=== PATIENT | female | born 1940 | race Caucasian/White ===

== ENCOUNTER 2016-06-26 21:01 | Emergency (ER) | payer MEDICARE, OTHER ==
[2016-06-26 21:16] VITALS: RESP 18
[2016-06-26] MEDS ORDERED: HYDROmorphone 1 MG/ML 1 ML SYRINGE IVP STA (21:24)
--- NOTE | 2016-06-26 21:28 | ED ---
General Adult HPI - General Chief complaint: Extremity Injury, Upper Stated complaint: left shoulder pain Time Seen by Provider: 06/26/16 21:11 Source: patient, EMS, RN notes reviewed Mode of arrival: EMS Limitations: no limitations - History of Present Illness Initial comments: Patient is a pleasant 75-year-old female presenting to the emergency department complaining of left shoulder pain. Onset of symptoms was 3 days ago. Patient states today discomfort is starting to travel down the left arm. No known trauma. Discomfort increases with motion. Patient admits to having a mild amount of neck discomfort. No history of similar symptoms previously. Patient denies any chest discomfort or difficulty in breathing. No nausea or vomiting. No diaphoresis. - Related Data Home Medications Medication Instructions Recorded Confirmed Atenolol [Tenormin] 50 mg PO QAM 01/22/14 06/26/16 Hydrochlorothiazide [Hydrodiuril] 25 mg PO DAILY 01/22/14 06/26/16 Isosorbide Mononitrate [Imdur] 30 mg PO QAM 01/22/14 06/26/16 Levothyroxine Sodium [Synthroid] 50 mg PO QAM 01/22/14 06/26/16 amLODIPine BESYLATE [Norvasc] 5 mg PO HS 01/22/14 06/26/16 Allopurinol [Zyloprim] 300 mg PO DAILY 06/26/16 06/26/16 Aspirin EC [Ecotrin Low Dose] 81 mg PO DAILY 06/26/16 06/26/16 Potassium Chloride [Klor-Con 10] 10 meq PO BID 06/26/16 06/26/16 Rosuvastatin [Crestor] 20 mg PO DAILY 06/26/16 06/26/16 Previous Rx's Medication Instructions Recorded Clopidogrel [Plavix] 75 mg PO DAILY #30 tab 01/28/14 Hydrocodone/Acetaminophen [[place] 2 each PO Q6HR PRN #20 tab 06/26/16 5-325] Allergies Allergy/AdvReac Type Severity Reaction Status Date / Time No Known Allergies Allergy Verified 06/26/16 21:34 Review of Systems ROS Statement: Those systems with pertinent positive or pertinent negative responses have been documented in the HPI. ROS Other: All systems not noted in ROS Statement are negative. Constitutional: Denies: fever Eyes: Denies: eye pain ENT: Denies: ear pain Respiratory: Denies: cough, dyspnea Cardiovascular: Denies: chest pain Endocrine: Denies: fatigue Gastrointestinal: Denies: abdominal pain Genitourinary: Denies: dysuria Musculoskeletal: Denies: back pain Skin: Denies: lesions Neurological: Denies: weakness Past Medical History Past Medical History: CVA/TIA, Hyperlipidemia, Hypertension, Osteoarthritis (OA) Additional Past Medical History / Comment(s): HAVING SOB WITH EXCERTION, HX OF CVA X2 1996/2002. N/T IN RIGHT HAND History of Any Multi-Drug Resistant Organisms: None Reported Past Surgical History: Heart Catheterization, Heart Catheterization With Stent, Tubal Ligation Additional Past Surgical History / Comment(s): JESIKA CATARACT SX, LEFT BREAST BX NEG 01-27-14 STENT TO CX Past Anesthesia/Blood Transfusion Reactions: Postoperative Nausea & Vomiting ( PONV) Date of Last Stent Placement:: 01-27-14 Past Psychological History: No Psychological Hx Reported Smoking Status: Never smoker Past Alcohol Use History: None Reported Past Drug Use History: None Reported General Exam Limitations: no limitations General appearance: alert, in no apparent distress Head exam: Present: atraumatic Eye exam: Present: normal appearance, PERRL ENT exam: Present: normal oropharynx Neck exam: Present: normal inspection, tenderness (Mild tenderness left trapezius between the neck and shoulder) Respiratory exam: Present: normal lung sounds bilaterally Cardiovascular Exam: Present: regular rate, normal rhythm Expanded Peripheral pulses: 2+: Radial (R), Radial (L), Dorsalis Pedis (R), Dorsalis Pedis (L) GI/Abdominal exam: Present: soft. Absent: tenderness Extremities exam: Present: normal inspection, tenderness (Minimal tenderness left shoulder), other (Significant pain with active range of motion. Minimal discomfort with passive range of motion.) Back exam: Present: normal inspection. Absent: tenderness Neurological exam: Present: alert, other (Distally left upper extremity is neurovascular intact.). Absent: motor sensory deficit Psychiatric exam: Present: normal affect, normal mood Skin exam: Present: rash (Patient has mild erythema in the anterior base of the neck which she states tape was there recently. Nontender.) Course Vital Signs 06/26/16 06/26/16 21:13 22:39 Temperature 98.1 F Pulse Rate 80 70 Respiratory 18 18 Rate Blood Pressure 177/81 145/75 O2 Sat by Pulse 95 100 Oximetry EKG Findings - EKG Comments: EKG Findings:: Normal sinus rhythm at 75. DE 162. QRS 104. QT 444. QTC 495. Left axis. Normal QRS. No acute ST change. Medical Decision Making - Medical Decision Making Patient reexamined and resting comfortably in bed. Patient is improved however not complete resolve. Family states symptoms have actually been present for around 30 years and patient does agree to this. Patient has previously seen orthopedics and agrees to follow-up again with orthopedics. - Lab Data Result diagrams: 06/26/16 21:32 06/26/16 21:32 Lab Results 06/26/16 06/26/16 06/26/16 Range/Units 21:32 21:32 21:32 WBC 10.1 (3.8-10.6) k/uL RBC 4.60 (3.80-5.40) m/uL Hgb 14.4 (11.4-16.0) gm/dL Hct 40.2 (34.0-46.0) % MCV 87.4 (80.0-100.0) fL MCH 31.3 (25.0-35.0) pg MCHC 35.8 (31.0-37.0) g/dL RDW 13.9 (11.5-15.5) % Plt Count 259 (150-450) k/uL Neutrophils % 78 % Lymphocytes % 14 % Monocytes % 6 % Eosinophils % 1 % Basophils % 0 % Neutrophils # 7.9 H (1.3-7.7) k/uL Lymphocytes # 1.4 (1.0-4.8) k/uL Monocytes # 0.6 (0-1.0) k/uL Eosinophils # 0.1 (0-0.7) k/uL Basophils # 0.0 (0-0.2) k/uL PT (9.0-12.0) sec INR (<1.1) APTT (22.0-30.0) sec Sodium 141 (137-145) mmol/L Potassium 3.0 L* (3.5-5.1) mmol/L Chloride 104 (98-107) mmol/L Carbon Dioxide 20 L (22-30) mmol/L Anion Gap 17 mmol/L BUN 15 (7-17) mg/dL Creatinine 0.60 (0.52-1.04) mg/dL Est GFR (MDRD) Af Amer >60 (>60 ml/min/1.73 sqM) Est GFR (MDRD) Non-Af >60 (>60 ml/min/1.73 sqM) Glucose 138 H (74-99) mg/dL Calcium 9.8 (8.4-10.2) mg/dL Magnesium 1.6 (1.6-2.3) mg/dL Total Bilirubin 0.7 (0.2-1.3) mg/dL AST 27 (14-36) U/L ALT 29 (9-52) U/L Alkaline Phosphatase 116 (38-126) U/L Total Creatine Kinase 75 (30-135) U/L CK-MB (CK-2) 0.7 (0.0-2.4) ng/mL CK-MB (CK-2) Rel Index 0.9 Troponin I <0.012 (0.000-0.034) ng/mL Total Protein 7.1 (6.3-8.2) g/dL Albumin 4.3 (3.5-5.0) g/dL 06/26/16 Range/Units 21:32 WBC (3.8-10.6) k/uL RBC (3.80-5.40) m/uL Hgb (11.4-16.0) gm/dL Hct (34.0-46.0) % MCV (80.0-100.0) fL MCH (25.0-35.0) pg MCHC (31.0-37.0) g/dL RDW (11.5-15.5) % Plt Count (150-450) k/uL Neutrophils % % Lymphocytes % % Monocytes % % Eosinophils % % Basophils % % Neutrophils # (1.3-7.7) k/uL Lymphocytes # (1.0-4.8) k/uL Monocytes # (0-1.0) k/uL Eosinophils # (0-0.7) k/uL Basophils # (0-0.2) k/uL PT 10.4 (9.0-12.0) sec INR 1.0 (<1.1) APTT 25.1 (22.0-30.0) sec Sodium (137-145) mmol/L Potassium (3.5-5.1) mmol/L Chloride (98-107) mmol/L Carbon Dioxide (22-30) mmol/L Anion Gap mmol/L BUN (7-17) mg/dL Creatinine (0.52-1.04) mg/dL Est GFR (MDRD) Af Amer (>60 ml/min/1.73 sqM) Est GFR (MDRD) Non-Af (>60 ml/min/1.73 sqM) Glucose (74-99) mg/dL Calcium (8.4-10.2) mg/dL Magnesium (1.6-2.3) mg/dL Total Bilirubin (0.2-1.3) mg/dL AST (14-36) U/L ALT (9-52) U/L Alkaline Phosphatase (38-126) U/L Total Creatine Kinase (30-135) U/L CK-MB (CK-2) (0.0-2.4) ng/mL CK-MB (CK-2) Rel Index Troponin I (0.000-0.034) ng/mL Total Protein (6.3-8.2) g/dL Albumin (3.5-5.0) g/dL - Radiology Data Radiology results: image reviewed (X-ray of the cervical spine, chest, and left shoulder show no acute abnormality.) Disposition Clinical Impression: Shoulder pain, left Disposition: HOME SELF-CARE Condition: Stable Instructions: Shoulder Pain (ED) Additional Instructions: Please follow-up with primary care physician and orthopedics in the next day or 2 for recheck. [id number] Motrin for the next few days if needed. Return for increased pain, weakness, redness, chest pain, worsening symptoms or other concerns. Prescriptions: Hydrocodone/Acetaminophen [[place] 5-325] 2 each PO Q6HR PRN #20 tab PRN Reason: Pain Referrals: Manjeet Umanzor MD [Primary Care Provider] - 1-2 days Walt Esqueda MD [STAFF PHYSICIAN] - 1-2 days
[2016-06-26 21:59] LABS: ALT 29 U/L (9-52); AST 27 U/L (14-36); Alkaline Phosphatase 116 U/L (38-126); Anion Gap 17 mmol/L; Blood Urea Nitrogen 15 mg/dL (7-17); Calcium 9.8 mg/dL (8.4-10.2); Carbon Dioxide 20 mmol/L (22-30); Chloride 104 mmol/L (98-107); Glucose 138 mg/dL (74-99); Magnesium 1.6 mg/dL (1.6-2.3); Non-African American GFR(MDRD) >60 (>60 ml/min/1.73 sqM); Sodium 141 mmol/L (137-145); Total Bilirubin 0.7 mg/dL (0.2-1.3); Total Protein 7.1 g/dL (6.3-8.2)
[2016-06-26 22:05] LABS: Partial Thromboplastin Time 25.1 sec (22.0-30.0); Prothrombin Time 10.4 sec (9.0-12.0)
[2016-06-26 22:09] LABS: Creatine Kinase 75 U/L (30-135)
[2016-06-26 22:13] LABS: Basophils % (A) 0 %; CH 31.2; CHCM 35.8; Eosinophils # (A) 0.1 k/uL (0-0.7); Eosinophils % (A) 1 %; HCT 40.2 % (34.0-46.0); HDW 3.12; HGB 14.4 gm/dL (11.4-16.0); Luc # (Auto) 0.09; Luc % (Auto) 1; Lymphocytes # (A) 1.4 k/uL (1.0-4.8); Lymphocytes % (A) 14 %; MCH 31.3 pg (25.0-35.0); MCHC 35.8 g/dL (31.0-37.0); MCV 87.4 fL (80.0-100.0); Mean Platelet Volume 6.7; Monocytes # (A) 0.6 k/uL (0-1.0); Monocytes % (A) 6 %; Neutrophils # (A) 7.9 k/uL (1.3-7.7); Neutrophils % (A) 78 %; RDW 13.9 % (11.5-15.5); WBC 10.1 k/uL (3.8-10.6); WBC (Perox) 10.74
--- NOTE | 2016-06-26 22:16 | XR ---
EXAMINATION TYPE: XR chest 2V DATE OF EXAM: 06/26/2016 10:03 PM COMPARISON: Chest radiographs December 23, 2013 HISTORY: Chronic left shoulder pain for years TECHNIQUE: Frontal and lateral views of the chest are obtained. FINDINGS: There is redemonstrated tortuosity of the thoracic aorta. There is no focal air space opaci ty, pleural effusion, or pneumothorax seen. The cardiac silhouette size is within normal limits. T he osseous structures are intact. IMPRESSION: No acute cardiopulmonary process.
--- NOTE | 2016-06-26 22:21 | XR ---
EXAMINATION TYPE: XR cervical spine comp DATE OF EXAM: 06/26/2016 10:03 PM COMPARISON: NONE HISTORY: Pain TECHNIQUE: 6 views were obtained. FINDINGS: There is no malalignment, but there are advanced cervical spondylosis changes seen at all l evels. No focal bony lesions, or incidental findings other than generalized atherosclerosis. IMPRESSION: No acute process.
[2016-06-26 22:22] LABS: Creatine Kinase MB 0.7 ng/mL (0.0-2.4); Troponin I <0.012 ng/mL (0.000-0.034)
[2016-06-26] MEDS ORDERED: POTASSIUM CHLORIDE ER 20 MEQ TAB.ER PO STA (22:22)
--- NOTE | 2016-06-26 22:24 | XR ---
EXAMINATION TYPE: XR shoulder complete LT DATE OF EXAM: 06/26/2016 10:03 PM COMPARISON: NONE HISTORY: Pain TECHNIQUE: 3 views FINDINGS: There are degenerative acromioclavicular joint changes which are moderate in degree and mil d glenohumeral joint osteoarthritis changes. There are no focal bony lesions. Bones and joints soft t issues are otherwise unremarkable. IMPRESSION: No acute process.
[2016-06-26 22:41] VITALS: PULSE 70
[2016-06-26 23:20] VITALS: BP 155/75; TEMP 97.8
== END 2016-06-26 23:20 | disposition home or self-care (01) ==
LOC: EC 21:01
DX: M25.512 Pain in left shoulder (principal); Z79.899 Other long term (current) drug therapy; M54.2 Cervicalgia; I10 Essential (primary) hypertension; Z79.82 Long term (current) use of aspirin; E78.5 Hyperlipidemia, unspecified; Z86.73 Personal history of transient ischemic attack (TIA), and cerebral infarction without residual deficits
CPT/HCPCS: 96374 ×2; 99284 ×2; 36415; 93005; 80053; 82550; 82553; 83735; 84484; 85025; 85610; 85730; 71020; 72050; 73030; J1170

== ENCOUNTER 2016-07-15 17:36 | Emergency (ER) | payer MEDICARE, OTHER ==
[2016-07-15 17:49] VITALS: BP 179/87; PULSE 82; RESP 20; TEMP 98.8
[2016-07-15] MEDS ORDERED: HYDROcodone/APAP 5-325MG 1 EACH TAB PO STA (18:21)
--- NOTE | 2016-07-15 18:27 | ED ---
General Adult HPI - General Chief complaint: Recheck/Abnormal Lab/Rx Stated complaint: PAIN IN LEFT ARM Time Seen by Provider: 07/15/16 18:13 Source: patient Mode of arrival: ambulatory Limitations: no limitations - History of Present Illness Initial comments: Patient is a 75-year-old female presenting to the emergency department with complaints of acute on chronic left shoulder pain. Patient has a history of osteoarthritis to her left shoulder and is currently being followed by Dr. Monterroso and Dr. Umanzor in the outpatient setting. Per patient's , patient ran out of pain medication and is unable to see Dr. Umanzor until Sunday. states that patient received a hydrocortisone injection in her left shoulder . states that patient is very noncompliant and even though he told her to call in case her pain medication refilled, she didn't do it. Patient states that her shoulder didn't start hurting really bad until earlier today and pain is now radiating down her arm. Patient currently rates pain 10 on a 10. Denies chills, fevers, shortness of breath or chest pain, or abdominal pain. No treatment prior to arrival. - Related Data Home Medications Medication Instructions Recorded Confirmed Atenolol [Tenormin] 50 mg PO QAM 01/22/14 06/26/16 Hydrochlorothiazide [Hydrodiuril] 25 mg PO DAILY 01/22/14 06/26/16 Isosorbide Mononitrate [Imdur] 30 mg PO QAM 01/22/14 06/26/16 Levothyroxine Sodium [Synthroid] 50 mg PO QAM 01/22/14 06/26/16 amLODIPine BESYLATE [Norvasc] 5 mg PO HS 01/22/14 06/26/16 Allopurinol [Zyloprim] 300 mg PO DAILY 06/26/16 06/26/16 Aspirin EC [Ecotrin Low Dose] 81 mg PO DAILY 06/26/16 06/26/16 Potassium Chloride [Klor-Con 10] 10 meq PO BID 06/26/16 06/26/16 Rosuvastatin [Crestor] 20 mg PO DAILY 06/26/16 06/26/16 Previous Rx's Medication Instructions Recorded Clopidogrel [Plavix] 75 mg PO DAILY #30 tab 01/28/14 Hydrocodone/Acetaminophen [[place] 2 each PO Q6HR PRN #20 tab 06/26/16 5-325] HYDROcodone/APAP 5-325MG [[place] 2 tab PO Q6HR PRN #20 tab 07/15/16 5-325] Allergies Allergy/AdvReac Type Severity Reaction Status Date / Time No Known Allergies Allergy Verified 06/26/16 21:34 Review of Systems ROS Statement: Those systems with pertinent positive or pertinent negative responses have been documented in the HPI. ROS Other: All systems not noted in ROS Statement are negative. Past Medical History Past Medical History: CVA/TIA, Hyperlipidemia, Hypertension, Osteoarthritis (OA) Additional Past Medical History / Comment(s): HAVING SOB WITH EXCERTION, HX OF CVA X2 . N/T IN RIGHT HAND History of Any Multi-Drug Resistant Organisms: None Reported Past Surgical History: Heart Catheterization, Heart Catheterization With Stent, Tubal Ligation Additional Past Surgical History / Comment(s): JESIKA CATARACT SX, LEFT BREAST BX NEG 01-27-14 STENT TO CX Past Anesthesia/Blood Transfusion Reactions: Postoperative Nausea & Vomiting ( PONV) Date of Last Stent Placement:: 01-27-14 Past Psychological History: No Psychological Hx Reported Smoking Status: Never smoker Past Alcohol Use History: None Reported Past Drug Use History: None Reported General Exam - General Exam Comments Initial Comments: GENERAL: Pt awake and alert, well-nourished, appears uncomfortable. HEAD: Atraumatic, normocephalic. EYES: Pupils equal and round. ENT: Moist mucous membranes. NECK:Supple without lymphadenopathy. LUNGS: Breath sounds clear to auscultation bilaterally. No wheezes, rales, or rhonchi. HEART: Heart S1, S2, no S3 or S4. Regular rate and rhythm. No murmurs, rubs or gallops. ABDOMEN: Soft, nontender, nondistended, normoactive bowel sounds. EXTREMITIES: 2+ peripheral pulses. Left shoulder tender to touch. Pain with active range of motion. Minimal pain with passive range of motion. NEUROLOGICAL: Pt oriented x 3. Cranial nerves II through XII grossly intact. Strength and sensation grossly intact. PSYCH: Anxious. SKIN: Warm, dry, intact. Normal turgor. Limitations: no limitations Course Vital Signs 07/15/16 17:45 Temperature 98.8 F Pulse Rate 82 Respiratory 20 Rate Blood Pressure 179/87 O2 Sat by Pulse 98 Oximetry Medical Decision Making - Medical Decision Making Acute on chronic left shoulder pain. Patient recently treated with hydrocortisone injection by orthopedic surgeon. Patient given pain medication in the emergency department with relief. Patient's pain medication refilled. Patient deemed stable for discharge to home. Patient instructed to follow-up with primary care physician and Dr. Monterroso an outpatient setting. Patient agrees to treatment plan. Discharge instructions and return parameters reviewed. Disposition Clinical Impression: Encounter for medication refill, Chronic left shoulder pain Disposition: HOME SELF-CARE Condition: Good Instructions: Shoulder Pain (ED) Additional Instructions: Please continue pain medication as needed every 6 hours for pain. Follow-up with primary care physician as directed. Follow-up with Dr. Monterroso for MRI of left shoulder as scheduled. Please return to the emergency department if symptoms do not improve or get worse. Prescriptions: HYDROcodone/APAP 5-325MG [[place] 5-325] 2 tab PO Q6HR PRN #20 tab PRN Reason: Pain Referrals: Manjeet Umanzor MD [Primary Care Provider] - 1-2 days Time of Disposition: 18:27
== END 2016-07-15 18:36 | disposition home or self-care (01) ==
LOC: EC 17:36
DX: M25.512 Pain in left shoulder (principal); G89.29 Other chronic pain; Z76.0 Encounter for issue of repeat prescription; I10 Essential (primary) hypertension; E78.5 Hyperlipidemia, unspecified; M19.012 Primary osteoarthritis, left shoulder; Z86.73 Personal history of transient ischemic attack (TIA), and cerebral infarction without residual deficits; Z95.5 Presence of coronary angioplasty implant and graft; Z79.82 Long term (current) use of aspirin; Z79.899 Other long term (current) drug therapy; Z79.02 Long term (current) use of antithrombotics/antiplatelets
CPT/HCPCS: 99283

== ENCOUNTER → 2016-11-13 | Outpatient (CLI) | payer MEDICARE, OTHER ==
--- NOTE | 2016-11-13 09:41 | US ---
EXAMINATION TYPE: US carotid duplex BILAT DATE OF EXAM: 11/13/2016 9:17 AM COMPARISON: NONE CLINICAL HISTORY: R41.3 Other [id number] ischemic attack. Memory loss, h/o stroke EXAM MEASUREMENTS: RIGHT: Peak Systolic Velocity (PSV) cm/sec ----- Right CCA: 43.8 ----- Right ICA: 43.8 ----- Right ECA: 44.6 ICA/CCA ratio: 1.0 RIGHT: End Diastole cm/sec ----- Right CCA: 11.8 ----- Right ICA: 15.4 ----- Right ECA: 0.0 LEFT: Peak Systolic Velocity (PSV) cm/sec ----- Left CCA: 44.7 ----- Left ICA: 51.0 ----- Left ECA: 53.1 ICA/CCA ratio: 1.1 LEFT: End Diastole cm/sec ----- Left CCA: 10.7 ----- Left ICA: 18.2 ----- Left ECA: 0.0 VERTEBRALS (direction of flow): Right Vertebral: Antegrade Left Vertebral: Antegrade Low velocities No significant stenosis seen IMPRESSION: I DO NOT SEE EVIDENCE OF A HEMODYNAMICALLY SIGNIFICANT STENOSIS IN EITHER CAROTID SYSTEM. Criteria for Assigning % of Stenosis / Diameter reduction (Estimation based on the indirect measurements of the internal carotid artery velocities (ICA PSV). 1. Normal (no stenosis)=ICA PSV < 125 cm/s: ratio < 2.0: ICA EDV<40 cm/s. 2. Less than 50% stenosis=ICA PSV < 125 cm/s: ratio < 2.0: ICA EDV<40 cm/s. 3. 50 to 69% stenosis=ICA PSV of 125 to 230 cm/s: ration 2.0 ? 4.0: ICA EDV 40-100 cm/s. 4. Greater than 70% stenosis to near occlusion= ICA PSV > 230 cm/s: ratio > 4.0: ICA EDV > 100 cm/s. 5. Near occlusion= ICA PSV velocities may be low or undetectable: variable ratio and ICA EDV. 6. Total occlusion=unable to detect flow.
--- NOTE | 2016-11-13 10:27 | MR ---
EXAMINATION TYPE: MR brain wo con DATE OF EXAM: 11/13/2016 10:01 AM COMPARISON: NONE HISTORY: memory loss , hx of stroke T1-weighted sagittal, T2, FLAIR, and diffusion axial, and T2 coronal coronal views of the brain are s ubmitted. There is no evidence of acute ischemia. The ventricles, basal cisterns, and sulci overlying the conv exities are consistent with the patient's age. There is no mass effect. Craniocervical junction maintained. No cerebellopontine angle mass. There are numerous areas of abnormal signal in the basal ganglia bilaterally which may represent prom inent [place] spaces versus tiny lacunar infarctions. Diffuse abnormal focal areas of abnormal signal in the white matter seen bilaterally compatible with remote microvascular ischemia. Areas of remote lacunar infarction involving the thalamus noted. Abnormal signal the shana suggestive of remote ischemia. Changes of chronic sinusitis and a partially empty sella turcica noted. IMPRESSION: 1. No acute intracranial process. Extensive degenerative and suspected remote ischemic change as disc ussed above. Faint subcentimeter area of abnormal signal within the left frontal white matter on diff usion is not seen on additional sequences. This is felt most likely artifactual rather than represent ing subacute tiny area of ischemia but should be correlated clinically. No mass effect. 2. Caliber of the right MCA appears somewhat diminutive relative to the left may be related to intrac ranial atherosclerotic disease could be correlated with MRA as clinically warranted.
== END | disposition home or self-care (01) ==
LOC: RADUSWWP 08:55
PROVIDERS: ATTEND Psychiatry & Neurology Neurology
DX: R41.3 Other amnesia (principal); Z86.73 Personal history of transient ischemic attack (TIA), and cerebral infarction without residual deficits
CPT/HCPCS: 70551; 93880

== ENCOUNTER 2017-03-08 14:07 | Emergency (ER) | payer MEDICARE, OTHER ==
[2017-03-08] MEDS ORDERED: SODIUM CHLORIDE 0.9% 1,000 ML IV STA ×2 (14:32)
[2017-03-08] MEDS ORDERED: SODIUM CHLORIDE 0.9% 500 ML IV STA (14:32)
--- NOTE | 2017-03-08 14:38 | ED ---
General Adult HPI - General Chief complaint: Abdominal Pain Stated complaint: writing deficit(neuro) Time Seen by Provider: 03/08/17 14:18 Source: patient, family, RN notes reviewed, old records reviewed Mode of arrival: ambulatory Limitations: no limitations - History of Present Illness Initial comments: If complaint history of present illness this is a 76-year-old female here with family. The patient's been having diarrhea for the past 3 days. Patient reports she's not been keeping up with her fluids. Patient's family states she' s been speaking a little slower moving a little slower. No other focal or lateralizing findings. Patient denies any pain. No nausea no vomiting no abdominal pain. She did not eat anything that causes her to be ill but didn't cause other still be ill. Denies being on any antibiotics lately. No blood in the stool. No nausea no vomiting. - Related Data Home Medications Medication Instructions Recorded Confirmed Atenolol [Tenormin] 50 mg PO QAM 01/22/14 03/08/17 Hydrochlorothiazide [Hydrodiuril] 25 mg PO DAILY 01/22/14 03/08/17 Isosorbide Mononitrate [Imdur] 30 mg PO QAM 01/22/14 03/08/17 Levothyroxine Sodium [Synthroid] 50 mg PO [facility] 01/22/14 03/08/17 amLODIPine BESYLATE [Norvasc] 5 mg PO 01/22/14 03/08/17 Allopurinol [Zyloprim] 300 mg PO DAILY 06/26/16 03/08/17 Aspirin EC [Ecotrin Low Dose] 81 mg PO DAILY 06/26/16 03/08/17 Potassium Chloride [Klor-Con 10] 10 meq PO BID 06/26/16 03/08/17 Rosuvastatin [Crestor] 20 mg PO TUTH 06/26/16 03/08/17 Donepezil [Aricept] 5 mg PO 03/08/17 03/08/17 Previous Rx's Medication Instructions Recorded Clopidogrel [Plavix] 75 mg PO DAILY #30 tab 01/28/14 Ciprofloxacin HCl [Cipro] 500 mg PO Q12HR #6 tablet 03/08/17 Ciprofloxacin HCl [Cipro] 500 mg PO Q12HR #6 tablet 03/08/17 Ondansetron Odt [Zofran Odt] 4 mg PO Q8HR PRN #10 tab 03/08/17 Allergies Allergy/AdvReac Type Severity Reaction Status Date / Time No Known Allergies Allergy Verified 03/08/17 15:06 Review of Systems ROS Statement: Those systems with pertinent positive or pertinent negative responses have been documented in the HPI. Review of systems. No visual acuity changes no headache no stiff neck no chest pain no palpitations no shortness of breath no abdominal pain just diarrhea for 3 days. Having a little more difficulty writing, walks slightly slower speaks slightly slower but not making any mistakes. No balance problems. Probable dehydration symptoms are suspected. All systems were reviewed. Past medical processing significant for several TIAs. Hyperlipidemia, hypertension, arthritis,. The patient's surgeries include heart catheterization with one stent. Total left shoulder replacement. Bilateral tubal ligation. Cataracts. Family history no cancers. Patient denies ALLERGIES denies smoking denies drinking. ROS Other: All systems not noted in ROS Statement are negative. Past Medical History Past Medical History: CVA/TIA, Hyperlipidemia, Hypertension, Osteoarthritis (OA) Additional Past Medical History / Comment(s): HX OF CVA X2 1996/2002. N/T IN RIGHT HAND History of Any Multi-Drug Resistant Organisms: None Reported Past Surgical History: Heart Catheterization, Heart Catheterization With Stent, Orthopedic Surgery, Tubal Ligation Additional Past Surgical History / Comment(s): JESIKA CATARACT SX, LEFT BREAST BX NEG 01-27-14 STENT TO CX, Left shoulder replacement Past Anesthesia/Blood Transfusion Reactions: Postoperative Nausea & Vomiting ( PONV) Date of Last Stent Placement:: 01-27-14 Past Psychological History: No Psychological Hx Reported Smoking Status: Never smoker Past Alcohol Use History: None Reported Past Drug Use History: None Reported General Exam - General Exam Comments Initial Comments: General: The patient is awake and alert, in no distress, and does not appear acutely ill. Patient reports that she's had diarrhea for 3 straight days. Not drinking fluids as much as she should. Vital signs temp 97.1 pulse 75 respiratory rate 18 pulse ox 95% room air blood pressure 145/67 Eye: Pupils are equal, round and reactive to light, extra-ocular movements are intact ; there is normal conjunctiva bilaterally. No signs of icterus. Evidence of cataract surgery. Ears, nose, mouth and throat: There are moist mucous membranes and no oral lesions. Neck: The neck is supple, there is no tenderness, no carotid bruits, thyroid not enlarged, no anterior cervical lymphadenopathy. Cardiovascular: Regular rate and rhythm. Systolic murmur appreciated. Patient reports she's never been told she had a murmur before. She will be advised to follow-up with family physician and cardiology for echo. Respiratory: Lungs are clear to auscultation, respirations are non-labored, breath sounds are equal. No wheezes, stridor, rales, or rhonchi. Gastrointestinal: Soft, non-distended, non-tender abdomen without masses or organomegaly noted. There is no rebound or guarding present. No CVA tenderness. Bowel sounds are unremarkable. Back: There is no tenderness to palpation in the midline. There is no obvious deformity. No rashes noted. Musculoskeletal: Normal ROM, no tenderness, There is no pedal edema. There is no calf tenderness or swelling. Sensation intact. Pulses equal bilaterally 2+. Neurological: CN II-XII intact, There are no obvious motor or sensory deficits. Coordination appears grossly intact. Speech is normal. No focal or lateralizing findings. Patient has had diarrhea for 3 days not been eating and drinking as much as she should. She thinks may be dehydrated causing her to be a little shaky speak a little more slowly. Otherwise no focal or lateralizing findings appreciated. Skin: Skin is warm and dry and no rashes or lesions are noted. Limitations: no limitations Course Vital Signs 03/08/17 03/08/17 14:10 16:00 Temperature 97.1 F L 98.2 F Pulse Rate 75 76 Respiratory 18 20 Rate Blood Pressure 145/67 136/72 O2 Sat by Pulse 95 98 Oximetry Medical Decision Making - Medical Decision Making Medical decision-making. The patient's white count is 10 hemoglobin 14 hematocrit of 43. Potassium is low at 3.0. This be supplemented. Glucose 183. BUN 26 creatinine 1.1 with a GFR 48. Amylase lipase within normal limits. Troponin and CPK normal. C. diff is negative as well. X-rays of the abdomen done and reviewed by radiologist's his final impression is nonspecific gas pattern with air-fluid levels correlate for enteritis or ileus. Partial obstruction not excluded. As read by After hydration patient states feeling better talking better family admits and agrees to same. The patient is receiving by mouth potassium as well as IV. She received 1/2 L of fluid and is currently running a 75 ML's per hour. The plan Patient be advised to use Pepto-Bismol at this time. She'll also be given a prescription for Zofran to be taken for nausea should that develop. She will also be placed on Cipro 500 twice a day for 3 days. We discussed travelers diarrhea. - Lab Data Result diagrams: 03/08/17 14:46 03/08/17 14:46 Lab Results 03/08/17 03/08/17 03/08/17 Range/Units 14:46 14:46 14:46 WBC 10.3 (3.8-10.6) k/uL RBC 4.94 (3.80-5.40) m/uL Hgb 14.7 (11.4-16.0) gm/dL Hct 43.1 (34.0-46.0) % MCV 87.2 (80.0-100.0) fL MCH 29.8 (25.0-35.0) pg MCHC 34.1 (31.0-37.0) g/dL RDW 16.7 H (11.5-15.5) % Plt Count 246 (150-450) k/uL Neutrophils % 83 % Lymphocytes % 10 % Monocytes % 5 % Eosinophils % 1 % Basophils % 0 % Neutrophils # 8.6 H (1.3-7.7) k/uL Lymphocytes # 1.0 (1.0-4.8) k/uL Monocytes # 0.5 (0-1.0) k/uL Eosinophils # 0.1 (0-0.7) k/uL Basophils # 0.0 (0-0.2) k/uL Anisocytosis Slight Sodium 137 (137-145) mmol/L Potassium 3.0 L* (3.5-5.1) mmol/L Chloride 99 (98-107) mmol/L Carbon Dioxide 22 (22-30) mmol/L Anion Gap 16 mmol/L BUN 26 H (7-17) mg/dL Creatinine 1.10 H (0.52-1.04) mg/dL Est GFR (MDRD) Af Amer 58 (>60 ml/min/1.73 sqM) Est GFR (MDRD) Non-Af 48 (>60 ml/min/1.73 sqM) Glucose 183 H (74-99) mg/dL Calcium 10.0 (8.4-10.2) mg/dL Total Bilirubin 0.6 (0.2-1.3) mg/dL AST 35 (14-36) U/L ALT 32 (9-52) U/L Alkaline Phosphatase 81 (38-126) U/L Total Creatine Kinase 142 H (30-135) U/L CK-MB (CK-2) 1.0 (0.0-2.4) ng/mL CK-MB (CK-2) Rel Index 0.7 Troponin I <0.012 (0.000-0.034) ng/mL Total Protein 7.3 (6.3-8.2) g/dL Albumin 4.4 (3.5-5.0) g/dL Amylase <30 L (30-110) U/L Lipase 46 (23-300) U/L C. difficile (EIA) Intrp (Negative) 03/08/17 Range/Units 16:36 WBC (3.8-10.6) k/uL RBC (3.80-5.40) m/uL Hgb (11.4-16.0) gm/dL Hct (34.0-46.0) % MCV (80.0-100.0) fL MCH (25.0-35.0) pg MCHC (31.0-37.0) g/dL RDW (11.5-15.5) % Plt Count (150-450) k/uL Neutrophils % % Lymphocytes % % Monocytes % % Eosinophils % % Basophils % % Neutrophils # (1.3-7.7) k/uL Lymphocytes # (1.0-4.8) k/uL Monocytes # (0-1.0) k/uL Eosinophils # (0-0.7) k/uL Basophils # (0-0.2) k/uL Anisocytosis Sodium (137-145) mmol/L Potassium (3.5-5.1) mmol/L Chloride (98-107) mmol/L Carbon Dioxide (22-30) mmol/L Anion Gap mmol/L BUN (7-17) mg/dL Creatinine (0.52-1.04) mg/dL Est GFR (MDRD) Af Amer (>60 ml/min/1.73 sqM) Est GFR (MDRD) Non-Af (>60 ml/min/1.73 sqM) Glucose (74-99) mg/dL Calcium (8.4-10.2) mg/dL Total Bilirubin (0.2-1.3) mg/dL AST (14-36) U/L ALT (9-52) U/L Alkaline Phosphatase (38-126) U/L Total Creatine Kinase (30-135) U/L CK-MB (CK-2) (0.0-2.4) ng/mL CK-MB (CK-2) Rel Index Troponin I (0.000-0.034) ng/mL Total Protein (6.3-8.2) g/dL Albumin (3.5-5.0) g/dL Amylase (30-110) U/L Lipase (23-300) U/L C. difficile (EIA) Intrp Negative (Negative) Disposition Clinical Impression: Diarrhea, Dehydration, mild, Hypokalemia, gastrointestinal losses Disposition: HOME SELF-CARE Condition: Fair Instructions: Traveler's Diarrhea (ED), Acute Diarrhea (ED) Additional Instructions: Pepto-Bismol as directed. If diarrhea continues until tomorrow start Cipro 500 twice a day for 3 days. Increase fluids. Follow-up family physician Prescriptions: Ciprofloxacin HCl [Cipro] 500 mg PO Q12HR #6 tablet Ciprofloxacin HCl [Cipro] 500 mg PO Q12HR #6 tablet Ondansetron Odt [Zofran Odt] 4 mg PO Q8HR PRN #10 tab PRN Reason: Nausea vomiting Referrals: Manjeet Umanzor MD [Primary Care Provider] - 1-2 days Time of Disposition: 18:14
--- NOTE | 2017-03-08 15:09 | XR ---
EXAMINATION TYPE: XR abdomen 2V DATE OF EXAM: 03/08/2017 COMPARISON: NONE HISTORY: Diarrhea TECHNIQUE: One view abdominal series FINDINGS: The osseous structures are intact. The bowel gas pattern is nonspecific. There is a paucity of bowel gas with areas of air-fluid level. Hypertrophic and degenerative change of the spine. Atherosclerotic change of the visualized thoracic aorta. Arthropathy of the hips. Osteitis pubis condensans noted. Correlate for sacroiliitis. IMPRESSION: 1. Nonspecific gas pattern with air-fluid levels correlate for enteritis or ileus. Partial obstructio n not excluded.
[2017-03-08 15:12] LABS: AST 35 U/L (14-36); Amylase <30 U/L (30-110); Sodium 137 mmol/L (137-145); Total Bilirubin 0.6 mg/dL (0.2-1.3)
[2017-03-08 15:16] LABS: Creatine Kinase 142 U/L (30-135)
[2017-03-08 15:19] LABS: Anisocytosis Slight; Basophils % (A) 0 %; CH 31.1; CHCM 35.9; Eosinophils # (A) 0.1 k/uL (0-0.7); Eosinophils % (A) 1 %; HCT 43.1 % (34.0-46.0); HDW 3.19; HGB 14.7 gm/dL (11.4-16.0); Luc # (Auto) 0.11; Luc % (Auto) 1; Lymphocytes % (A) 10 %; MCH 29.8 pg (25.0-35.0); MCHC 34.1 g/dL (31.0-37.0); MCV 87.2 fL (80.0-100.0); Mean Platelet Volume 7.8; Monocytes # (A) 0.5 k/uL (0-1.0); Monocytes % (A) 5 %; Neutrophils # (A) 8.6 k/uL (1.3-7.7); Neutrophils % (A) 83 %; RBC 4.94 m/uL (3.80-5.40); RDW 16.7 % (11.5-15.5); WBC 10.3 k/uL (3.8-10.6); WBC (Perox) 10.69
[2017-03-08 15:29] LABS: Troponin I <0.012 ng/mL (0.000-0.034)
[2017-03-08 15:34] LABS: ALT 32 U/L (9-52); Alkaline Phosphatase 81 U/L (38-126); Anion Gap 16 mmol/L; Blood Urea Nitrogen 26 mg/dL (7-17); Carbon Dioxide 22 mmol/L (22-30); Chloride 99 mmol/L (98-107); Glucose 183 mg/dL (74-99); Non-African American GFR(MDRD) 48 (>60 ml/min/1.73 sqM); Total Protein 7.3 g/dL (6.3-8.2)
[2017-03-08] MEDS ORDERED: POTASSIUM CHLORIDE ER 20 MEQ TAB.ER PO STA (16:42)
[2017-03-08] MEDS ORDERED: POTASSIUM CHLORIDE 20 MEQ, LIDOCAINE 2% INJ 20 MG in SODIUM CHLORIDE 0.9% 100 ML IVPB ONE (17:00)
[2017-03-08 19:04] VITALS: BP 139/67; PULSE 75; RESP 17; TEMP 99.4
== END 2017-03-08 19:15 | disposition home or self-care (01) ==
LOC: EC 14:07
DX: E86.0 Dehydration (principal); E87.6 Hypokalemia; R19.7 Diarrhea, unspecified; E78.5 Hyperlipidemia, unspecified; I10 Essential (primary) hypertension; M19.90 Unspecified osteoarthritis, unspecified site; Z86.73 Personal history of transient ischemic attack (TIA), and cerebral infarction without residual deficits; Z79.82 Long term (current) use of aspirin; Z79.899 Other long term (current) drug therapy
CPT/HCPCS: 36415; 80053; 82150; 82550; 82553; 83690; 84484; 85025; 87324; 87045; 87077; 87186; 87046; 74020; 99284; 96365; 96366; 96361 ×2; J2001; J3480

== ENCOUNTER 2017-04-30 19:29 | Inpatient (IN) | payer MEDICARE, OTHER ==
[2017-04-30] MEDS ORDERED: SODIUM CHLORIDE 0.9% 1,000 ML IV STA (19:32)
[2017-04-30] MEDS ORDERED: SODIUM CHLORIDE 0.9% 500 ML IV STA (19:32)
--- NOTE | 2017-04-30 19:36 | ED ---
Syncope HPI - General Stated Complaint: syncope Time Seen by Provider: 04/30/17 19:29 Source: patient, EMS, RN notes reviewed Mode of arrival: EMS - History of Present Illness Initial Comments: this is a 68-year-old female who apparently is having feeling well the past few days she's had cold symptoms with rhinorrhea no fevers chills or sweats she's had decreased oral intake. She was brought in for evaluation of possible syncopal episode. Per EMS she was sleeping her tried to arouse her and was unsuccessful. Patient states she believes she remembers all this but did not respond and is not sure why she didn't respond she does have a history of CVA she does have a negative Kernig history of cough or earache sore throat any phlegm production nausea vomiting focal weakness or upper or lower extremities no headache. MD Complaint: other - Related Data Home Medications Medication Instructions Recorded Confirmed Atenolol [Tenormin] 50 mg PO QAM 01/22/14 04/30/17 Hydrochlorothiazide [Hydrodiuril] 25 mg PO DAILY 01/22/14 04/30/17 Isosorbide Mononitrate [Imdur] 30 mg PO QAM 01/22/14 04/30/17 Levothyroxine Sodium [Synthroid] 50 mcg PO QA 01/22/14 04/30/17 amLODIPine BESYLATE [Norvasc] 5 mg PO 01/22/14 04/30/17 Allopurinol [Zyloprim] 300 mg PO DAILY 06/26/16 04/30/17 Aspirin EC [Ecotrin Low Dose] 81 mg PO DAILY 06/26/16 04/30/17 Potassium Chloride [Klor-Con 10] 10 meq PO BID 06/26/16 04/30/17 Rosuvastatin [Crestor] 20 mg PO TUTH 06/26/16 04/30/17 Donepezil [Aricept] 5 mg PO HS 03/08/17 04/30/17 Nitroglycerin Sl Tabs [Nitrostat] 0.4 mg SUBLINGUAL Q5M PRN 04/30/17 04/30/17 Previous Rx's Medication Instructions Recorded Clopidogrel [Plavix] 75 mg PO DAILY #30 tab 01/28/14 Ondansetron Odt [Zofran Odt] 4 mg PO Q8HR PRN #10 tab 03/08/17 Allergies Allergy/AdvReac Type Severity Reaction Status Date / Time No Known Allergies Allergy Verified 04/30/17 20:28 Review of Systems ROS Statement: Those systems with pertinent positive or pertinent negative responses have been documented in the HPI. ROS Other: All systems not noted in ROS Statement are negative. Past Medical History Past Medical History: CVA/TIA, Hyperlipidemia, Hypertension, Osteoarthritis (OA) Additional Past Medical History / Comment(s): HX OF CVA X2 . N/T IN RIGHT HAND History of Any Multi-Drug Resistant Organisms: None Reported Past Surgical History: Heart Catheterization, Heart Catheterization With Stent, Orthopedic Surgery, Tubal Ligation Additional Past Surgical History / Comment(s): JESIKA CATARACT SX, LEFT BREAST BX NEG 01-27-14 STENT TO CX, Left shoulder replacement Past Anesthesia/Blood Transfusion Reactions: Postoperative Nausea & Vomiting ( PONV) Date of Last Stent Placement:: 01-27-14 Past Psychological History: No Psychological Hx Reported Smoking Status: Never smoker Past Alcohol Use History: None Reported Past Drug Use History: None Reported General Exam - General Exam Comments Initial Comments: this is a well-developed well-nourished awake alert oriented 3 female she is somewhat slow to respond to questioning General appearance: alert, in no apparent distress Head exam: Present: atraumatic, normocephalic, normal inspection Eye exam: Present: normal appearance, PERRL, EOMI. Absent: scleral icterus, conjunctival injection, periorbital swelling ENT exam: Present: mucous membranes dry, other (boggy nasal mucosa) Neck exam: Present: normal inspection. Absent: tenderness, meningismus, lymphadenopathy Respiratory exam: Present: normal lung sounds bilaterally. Absent: respiratory distress, wheezes, rales, rhonchi, stridor Cardiovascular Exam: Present: regular rate, normal rhythm, normal heart sounds. Absent: systolic murmur, diastolic murmur, rubs, gallop, clicks GI/Abdominal exam: Present: soft, normal bowel sounds. Absent: distended, tenderness, guarding, rebound, rigid Extremities exam: Present: normal inspection, full ROM, normal capillary refill. Absent: tenderness, pedal edema, joint swelling, calf tenderness Back exam: Present: normal inspection Neurological exam: Present: alert, oriented X3, CN II-XII intact Psychiatric exam: Present: normal affect, normal mood Skin exam: Present: warm, dry, intact, normal color. Absent: rash Course Vital Signs 04/30/17 04/30/17 04/30/17 19:30 19:50 20:41 Temperature 99.0 F Pulse Rate 70 70 70 Respiratory 18 18 18 Rate Blood Pressure 127/58 143/60 123/68 O2 Sat by Pulse 91 L 96 98 Oximetry 04/30/17 20:48 Temperature Pulse Rate 64 Respiratory 18 Rate Blood Pressure 111/64 O2 Sat by Pulse 96 Oximetry EKG Findings - EKG Results: EKG: interpreted by JORGE, sinus rhythm (Sinus rhythm rate of 68. Ago 170 QRS duration 104 QT since QTC of 442/469 with exodeviation minimal voltage criteria for LVH) Medical Decision Making - Medical Decision Making patient is so is somewhat better she is influenza type A-positive she has evidence of dehydration. She did have evidence of a syncope or near syncopal episode. I did discuss case with patient family as well as the hospitalist who is covering today. Patient will be admitted - Lab Data Result diagrams: 04/30/17 19:43 04/30/17 19:43 Lab Results 04/30/17 04/30/17 04/30/17 Range/Units 19:43 19:43 19:43 WBC 5.3 (3.8-10.6) k/uL RBC 4.80 (3.80-5.40) m/uL Hgb 14.0 (11.4-16.0) gm/dL Hct 43.3 (34.0-46.0) % MCV 90.3 (80.0-100.0) fL MCH 29.1 (25.0-35.0) pg MCHC 32.2 (31.0-37.0) g/dL RDW 17.4 H (11.5-15.5) % Plt Count 203 (150-450) k/uL Neutrophils % 75 % Lymphocytes % 11 % Monocytes % 11 % Eosinophils % 2 % Basophils % 1 % Neutrophils # 4.0 (1.3-7.7) k/uL Lymphocytes # 0.6 L (1.0-4.8) k/uL Monocytes # 0.6 (0-1.0) k/uL Eosinophils # 0.1 (0-0.7) k/uL Basophils # 0.1 (0-0.2) k/uL Anisocytosis Slight PT (9.0-12.0) sec INR (<1.2) APTT (22.0-30.0) sec Sodium 137 (137-145) mmol/L Potassium 3.1 L (3.5-5.1) mmol/L Chloride 102 (98-107) mmol/L Carbon Dioxide 23 (22-30) mmol/L Anion Gap 12 mmol/L BUN 20 H (7-17) mg/dL Creatinine 0.97 (0.52-1.04) mg/dL Est GFR (MDRD) Af Amer >60 (>60 ml/min/1.73 sqM) Est GFR (MDRD) Non-Af 56 (>60 ml/min/1.73 sqM) Glucose 107 H (74-99) mg/dL Calcium 9.0 (8.4-10.2) mg/dL Magnesium 1.9 (1.6-2.3) mg/dL Total Bilirubin 0.6 (0.2-1.3) mg/dL AST 48 H (14-36) U/L ALT 40 (9-52) U/L Alkaline Phosphatase 64 (38-126) U/L Total Creatine Kinase 85 (30-135) U/L CK-MB (CK-2) 0.5 (0.0-2.4) ng/mL CK-MB (CK-2) Rel Index 0.6 Troponin I 0.015 (0.000-0.034) ng/mL Total Protein 7.2 (6.3-8.2) g/dL Albumin 4.3 (3.5-5.0) g/dL Urine Color Urine Appearance (Clear) Urine pH (5.0-8.0) Ur Specific Kaufman (1.001-1.035) Urine Protein (Negative) Urine Glucose (UA) (Negative) Urine Ketones (Negative) Urine Blood (Negative) Urine Nitrite (Negative) Urine Bilirubin (Negative) Urine Urobilinogen (<2.0) mg/dL Ur Leukocyte Esterase (Negative) Urine RBC (0-5) /hpf Urine WBC (0-5) /hpf Ur Squamous Epith Cells (0-4) /hpf Urine Bacteria (None) /hpf Hyaline Casts (0-2) /lpf Urine Mucus (None) /hpf Urine Yeast (Budding) (None) /hpf Influenza Type A RNA (Not Detectd) Influenza Type B (PCR) (Not Detectd) 04/30/17 04/30/17 04/30/17 Range/Units 19:43 19:43 20:30 WBC (3.8-10.6) k/uL RBC (3.80-5.40) m/uL Hgb (11.4-16.0) gm/dL Hct (34.0-46.0) % MCV (80.0-100.0) fL MCH (25.0-35.0) pg MCHC (31.0-37.0) g/dL RDW (11.5-15.5) % Plt Count (150-450) k/uL Neutrophils % % Lymphocytes % % Monocytes % % Eosinophils % % Basophils % % Neutrophils # (1.3-7.7) k/uL Lymphocytes # (1.0-4.8) k/uL Monocytes # (0-1.0) k/uL Eosinophils # (0-0.7) k/uL Basophils # (0-0.2) k/uL Anisocytosis PT 10.4 (9.0-12.0) sec INR 1.0 (<1.2) APTT 22.0 (22.0-30.0) sec Sodium (137-145) mmol/L Potassium (3.5-5.1) mmol/L Chloride (98-107) mmol/L Carbon Dioxide (22-30) mmol/L Anion Gap mmol/L BUN (7-17) mg/dL Creatinine (0.52-1.04) mg/dL Est GFR (MDRD) Af Amer (>60 ml/min/1.73 sqM) Est GFR (MDRD) Non-Af (>60 ml/min/1.73 sqM) Glucose (74-99) mg/dL Calcium (8.4-10.2) mg/dL Magnesium (1.6-2.3) mg/dL Total Bilirubin (0.2-1.3) mg/dL AST (14-36) U/L ALT (9-52) U/L Alkaline Phosphatase (38-126) U/L Total Creatine Kinase (30-135) U/L CK-MB (CK-2) (0.0-2.4) ng/mL CK-MB (CK-2) Rel Index Troponin I (0.000-0.034) ng/mL Total Protein (6.3-8.2) g/dL Albumin (3.5-5.0) g/dL Urine Color Yellow Urine Appearance Cloudy H (Clear) Urine pH 6.0 (5.0-8.0) Ur Specific Kaufman 1.018 (1.001-1.035) Urine Protein Trace H (Negative) Urine Glucose (UA) Negative (Negative) Urine Ketones Trace H (Negative) Urine Blood Negative (Negative) Urine Nitrite Negative (Negative) Urine Bilirubin Negative (Negative) Urine Urobilinogen <2.0 (<2.0) mg/dL Ur Leukocyte Esterase Large H (Negative) Urine RBC 8 H (0-5) /hpf Urine WBC 21 H (0-5) /hpf Ur Squamous Epith Cells 9 H (0-4) /hpf Urine Bacteria Many H (None) /hpf Hyaline Casts 1 (0-2) /lpf Urine Mucus Occasional H (None) /hpf Urine Yeast (Budding) Occasional H (None) /hpf Influenza Type A RNA Detected H (Not Detectd) Influenza Type B (PCR) Not Detected (Not Detectd) - Radiology Data Radiology results: report reviewed (I did review the imaging and reports no acute findings.), image reviewed Disposition Clinical Impression: Syncope, Influenza A, Dehydration, Hypokalemia, Febrile illness, acute Disposition: ADMITTED IP TO THIS [facility] Condition: Stable Referrals: Manjeet Umanzor MD [Primary Care Provider] - 1-2 days
[2017-04-30 19:57] LABS: Anisocytosis Slight; Basophils # (A) 0.1 k/uL (0-0.2); Basophils % (A) 1 %; CH 30.2; CHCM 33.6; Eosinophils # (A) 0.1 k/uL (0-0.7); Eosinophils % (A) 2 %; HCT 43.3 % (34.0-46.0); HDW 2.96; Luc # (Auto) 0.07; Luc % (Auto) 1; Lymphocytes # (A) 0.6 k/uL (1.0-4.8); Lymphocytes % (A) 11 %; MCH 29.1 pg (25.0-35.0); MCHC 32.2 g/dL (31.0-37.0); MCV 90.3 fL (80.0-100.0); Monocytes # (A) 0.6 k/uL (0-1.0); Monocytes % (A) 11 %; Neutrophils % (A) 75 %; RDW 17.4 % (11.5-15.5); WBC 5.3 k/uL (3.8-10.6); WBC (Perox) 5.96
[2017-04-30 20:05] LABS: Prothrombin Time 10.4 sec (9.0-12.0)
--- NOTE | 2017-04-30 20:08 | XR ---
EXAMINATION TYPE: XR chest 2V DATE OF EXAM: 04/30/2017 COMPARISON: 06/26/2016 HISTORY: Syncope. Cough. TECHNIQUE: Frontal and lateral views of the chest are obtained. FINDINGS: There is no heart failure nor confluent pneumonic infiltrate. Costophrenic angles are julianne r. There is left shoulder prosthesis. There are chest leads. Thoracic aorta is atheromatous. There is mild spurring in the thoracic spine. Heart size is normal. IMPRESSION: No active cardiopulmonary disease. No change.
[2017-04-30 20:12] LABS: ALT 40 U/L (9-52); AST 48 U/L (14-36); Alkaline Phosphatase 64 U/L (38-126); Anion Gap 12 mmol/L; Blood Urea Nitrogen 20 mg/dL (7-17); Carbon Dioxide 23 mmol/L (22-30); Chloride 102 mmol/L (98-107); Glucose 107 mg/dL (74-99); Magnesium 1.9 mg/dL (1.6-2.3); Non-African American GFR(MDRD) 56 (>60 ml/min/1.73 sqM); Potassium 3.1 mmol/L (3.5-5.1); Sodium 137 mmol/L (137-145); Total Bilirubin 0.6 mg/dL (0.2-1.3); Total Protein 7.2 g/dL (6.3-8.2)
[2017-04-30 20:33] LABS: Creatine Kinase MB 0.5 ng/mL (0.0-2.4); Troponin I 0.015 ng/mL (0.000-0.034)
[2017-04-30 20:51] LABS: Appearance,Urine Cloudy (Clear); Bacteria,Urine Many /hpf; Bilirubin,Urine Negative (Negative); Glucose,Urine (UA) Negative (Negative); Ketones,Urine Trace (Negative); Leukocyte Esterase,Urine Large (Negative); Mucus,Urine Occasional /hpf; Nitrite,Urine Negative (Negative); Particle Count 14330; Protein,Urine Trace (Negative); RBC,Urine 8 /hpf (0-5); Specific Gravity,Urine 1.018 (1.001-1.035); Squamous Epithelial Cell,Urine 9 /hpf (0-4); UA Billing (MACRO vs. MICRO) MICRO; Urobilinogen,Urine <2.0 mg/dL (<2.0); WBC,Urine 21 /hpf (0-5)
[2017-04-30] MEDS ORDERED: OSELTAMIVIR 75 MG CAP PO STA (21:33)
[2017-04-30] MEDS ORDERED: NALOXONE 0.4 MG/ML 1 ML VIAL IV PRN (21:36)
[2017-04-30] MEDS ORDERED: ONDANSETRON ODT 4 MG TAB PO PRN (21:38)
[2017-04-30] MEDS ORDERED: NITROGLYCERIN SL TABS 0.4 MG TAB SUBLINGUAL PRN (21:38)
[2017-04-30] MEDS ORDERED: 0.9% NACL WITH KCL 20 MEQ/L 1,000 ML IV SCH (21:45)
[2017-04-30] MEDS ORDERED: POTASSIUM CHLORIDE ER 20 MEQ TAB.ER PO STA (22:09)
--- NOTE | 2017-04-30 23:06 | P.HPIM ---
History of Present Illness H&P Date: 04/30/17 Chief Complaint: Altered mental status Arcelia Shafer is a 76-year-old female with history of coronary artery disease , CVA, hypertension and hyperlipidemia who presents to the hospital with altered mental status and confusion. Per the patient's family members who are at bedside at time examination, the patient's reports speaking with the patient this evening however the patient was not responding. The patient herself states that she remembers her speaking to her however she was unable to answer his question. There was no noted facial droop, slurred speech , convulsions or focal weakness during this episode. The patient reports approximately 48 hours of "not feeling well". She states that she has had malaise, runny nose and nonproductive cough. Denies any chest pain, shortness of breath, fevers, chills, nausea, vomiting, diarrhea or constipation. She states that she was in bed for most of Sunday. During the episode this evening , the patient did not have any loss of bowel or bladder control. She denies having any headache, dizziness or lightheadedness, and does not report any new focal weakness of any extremity. The patient does have a history of CVA with residual right hand weakness however this is no worse than normal. There is no reported slurred speech or facial droop. The patient states that she has not been eating or drinking for the past 48 hours due to decreased appetite. In the emergency department the patient was found to be influenza A positive. The patient states she did have a flu shot approximately one month prior. Review of Systems Constitutional: Patient reports decreased appetite; no fever, no chills, no weight changes Eyes: Patient reports no double vision, no visual changes ENT: Patient reports rhinorrhea; denies post nasal drip, no sore throat Cardiovascular: Patient reports no chest pain, no edema, no palpitations, no syncope, no orthopnea, no paroxysmal nocturnal dyspnea. Respiratory: Patient reports nonproductive cough. Denies any dyspnea or wheeze Gastrointestinal: Patient reports no nausea, no vomiting, no constipation, no diarrhea Genitourinary: Patient reports no dysuria, no urinary frequency, no hematuria. Musculoskeletal: Patient reports no unusual joint pain, no joint swelling or weakness. Patient reports no muscular pain. Psychiatric: Patient reports no changes in mood, no sleeping problems. Patient reports no changes in memory. Endocrine: Patient reports no thirst, no polyuria, no cold intolerance, no heat intolerance. Neurological: Patient reports no unusual paresthesias, no seizures, no paresis , no paralysis, no facila droop, no headache. Heme/Lymphatic: Patient reports no easy bruising, no bleeding tendency, no lymphadenopathy. Allergic/ Immunologic: Patient reports no recent allergic reactions or immunologic history. Skin: Patient reports no rashes or unusual lesions. Past Medical History Past Medical History: Coronary Artery Disease (CAD), CVA/TIA, Hyperlipidemia, Hypertension, Osteoarthritis (OA) Additional Past Medical History / Comment(s): HX OF CVA X2 . N/T IN RIGHT HAND History of Any Multi-Drug Resistant Organisms: None Reported Past Surgical History: Heart Catheterization, Heart Catheterization With Stent, Orthopedic Surgery, Tubal Ligation Additional Past Surgical History / Comment(s): JESIKA CATARACT SX, LEFT BREAST BX NEG 01-27-14 STENT TO CX, Left shoulder replacement Past Anesthesia/Blood Transfusion Reactions: Postoperative Nausea & Vomiting ( PONV) Date of Last Stent Placement:: 01-27-14 Past Psychological History: No Psychological Hx Reported Smoking Status: Never smoker Past Alcohol Use History: None Reported Past Drug Use History: None Reported Medications and Allergies Home Medications Medication Instructions Recorded Confirmed Type Atenolol [Tenormin] 50 mg PO QAM 01/22/14 04/30/17 History Hydrochlorothiazide [Hydrodiuril] 25 mg PO DAILY 01/22/14 04/30/17 History Isosorbide Mononitrate [Imdur] 30 mg PO QA 01/22/14 04/30/17 History Levothyroxine Sodium [Synthroid] 50 mcg PO QA 01/22/14 04/30/17 History amLODIPine BESYLATE [Norvasc] 5 mg PO HS 01/22/14 04/30/17 History Clopidogrel [Plavix] 75 mg PO DAILY #30 tab 01/28/14 04/30/17 Rx Allopurinol [Zyloprim] 300 mg PO DAILY 06/26/16 04/30/17 History Aspirin EC [Ecotrin Low Dose] 81 mg PO DAILY 06/26/16 04/30/17 History Potassium Chloride [Klor-Con 10] 10 meq PO BID 06/26/16 04/30/17 History Rosuvastatin [Crestor] 20 mg PO TUTH 06/26/16 04/30/17 History Donepezil [Aricept] 5 mg PO HS 03/08/17 04/30/17 History Ondansetron Odt [Zofran Odt] 4 mg PO Q8HR PRN #10 tab 03/08/17 04/30/17 Rx Nitroglycerin Sl Tabs [Nitrostat] 0.4 mg SUBLINGUAL Q5M PRN 04/30/17 04/30/17 History Allergies Allergy/AdvReac Type Severity Reaction Status Date / Time No Known Allergies Allergy Verified 04/30/17 20:28 Physical Exam Osteopathic Statement: *. No significant issues noted on an osteopathic structural exam other than those noted in the History and Physical/Consult. Vitals: Vital Signs Temp Pulse Resp BP Pulse Ox 04/30/17 21:40 65 18 124/71 94 L 04/30/17 20:48 64 18 111/64 96 04/30/17 20:41 70 18 123/68 98 04/30/17 19:50 70 18 143/60 96 04/30/17 19:30 99.0 F 70 18 127/58 91 L Intake and Output 04/30/17 04/30/17 04/30/17 06:59 14:59 22:59 Other: Weight 70.76 kg Patient Weight 05/01/17 06:59 Weight 70.76 kg Constitutional:No acute distress, conversant, pleasant Eyes:Anicteric sclerae, moist conjunctiva, no lid-lag PERRLA ENMT: Mucous membranes dry. Oropharynx clear, no erythema, exudates Neck:Supple, Firm, no masses, or JVD, No carotid bruits, No thyromegaly Lungs:Clear to auscultation, Clear to percussion, Normal respiratory effort, no accessory muscle use Cardiovascular: Heart regular in rate and rhythm, No murmurs, gallops, or rubs, No peripheral edema Abdominal: Soft, Nontender, no guarding, rebound or rigidity, Abdomen moving with respiration, Normoactive bowel sounds, No hepatomegaly, No splenomegaly, No palpable mass , No abdominal wall hernia noted Skin: Decreased skin turgor. No induration, No subcutaneous nodules, No rash, lesions, No ulcers Extremities: No digital cyanosis, No clubbing, Pedal pulses intact and symmetrical, Radial pulses intact and symmetrical, Normal gait and station, No calf tenderness Psychiatric: Alert and oriented to person, place and time, Appropriate affect, Intact judgement Neuro: Negative Kernig's. No nuchal rigidity. Muscle strength 5/5 in left upper extremity, bilateral lower extremities. Muscle strength 4+/5 in right hand. Sensation to light touch grossly present throughout, Cranial nerves II- XII grossly intact, No focal sensory deficits Results CBC & Chem 7: 04/30/17 19:43 04/30/17 19:43 Labs: Abnormal Lab Results - Last 24 Hours (Table) 04/30/17 04/30/17 04/30/17 Range/Units 19:43 19:43 19:43 RDW 17.4 H (11.5-15.5) % Lymphocytes # 0.6 L (1.0-4.8) k/uL Potassium 3.1 L (3.5-5.1) mmol/L BUN 20 H (7-17) mg/dL Glucose 107 H (74-99) mg/dL AST 48 H (14-36) U/L Urine Appearance (Clear) Urine Protein (Negative) Urine Ketones (Negative) Ur Leukocyte Esterase (Negative) Urine RBC (0-5) /hpf Urine WBC (0-5) /hpf Ur Squamous Epith Cells (0-4) /hpf Urine Bacteria (None) /hpf Urine Mucus (None) /hpf Urine Yeast (Budding) (None) /hpf Influenza Type A RNA Detected H (Not Detectd) 04/30/17 Range/Units 20:30 RDW (11.5-15.5) % Lymphocytes # (1.0-4.8) k/uL Potassium (3.5-5.1) mmol/L BUN (7-17) mg/dL Glucose (74-99) mg/dL AST (14-36) U/L Urine Appearance Cloudy H (Clear) Urine Protein Trace H (Negative) Urine Ketones Trace H (Negative) Ur Leukocyte Esterase Large H (Negative) Urine RBC 8 H (0-5) /hpf Urine WBC 21 H (0-5) /hpf Ur Squamous Epith Cells 9 H (0-4) /hpf Urine Bacteria Many H (None) /hpf Urine Mucus Occasional H (None) /hpf Urine Yeast (Budding) Occasional H (None) /hpf Influenza Type A RNA (Not Detectd) Thrombosis Risk Factor Assmnt - Choose All That Apply Each Risk Factor Represents 3 Points: Age 75 years or older Thrombosis Risk Factor Assessment Total Risk Factor Score: 3 Thrombosis Risk Factor Assessment Level: Moderate Risk Assessment and Plan (1) Altered mental status Narrative/Plan: Etiology of patient's altered mental status is likely secondary to dehydration with diagnosis of influenza A. Patient at this time is back to baseline with no focal neurologic deficits that are new. She does have a history of CVA with residual right hand weakness which has not worsened per her own admission. No evidence of nuchal rigidity or Kernig's sign. We will continue to resuscitate the patient with IV fluids and start her on Tamiflu for new diagnosis of influenza A. Will order neuro checks per protocol as well. Monitor electrolytes closely and replace potassium. UA does show WBCs with positive leukocyte Esterase however presence of epithelials noted in specimen. Patient denies any dysuria or increased urinary frequency. Will hold off on starting antibiotics at this time and monitor. Repeat clean catch specimen. Current Visit: Yes Status: Acute Code(s): R41.82 - ALTERED MENTAL STATUS, UNSPECIFIED SNOMED Code(s): 776527322 (2) Dehydration Narrative/Plan: Patient has had decreased oral intake for approximately 48 hours and clinically appears dehydrated. She has received approximately 500 mL of IV fluids in the emergency department. Will continue IV fluids at 100 mL an hour for an additional 1 L. Monitor intake/output Repeat labs in a.m. Current Visit: Yes Status: Acute Code(s): E86.0 - DEHYDRATION SNOMED Code( s): 52832207 (3) Influenza A Narrative/Plan: As symptoms began roughly 48 hours prior, will start patient on Tamiflu A complete 5 day course Maintain influenza precautions Current Visit: Yes Status: Acute Code(s): J10.1 - FLU DUE TO OTH IDENT INFLUENZA VIRUS W OTH RESP MANIFEST SNOMED Code(s): 512812299 (4) Hypokalemia Narrative/Plan: Patient has chronic hypokalemia and takes potassium supplement on an outpatient basis Will give potassium chloride 40 mEq by mouth 1 Repeat labs in a.m. Current Visit: Yes Status: Acute Code(s): E87.6 - HYPOKALEMIA SNOMED Code( s): 00003818 Time with Patient: Greater than 30
[2017-05-01 00:15] VITALS: BMI 30.4
[2017-05-01 00:52] LABS: Appearance,Urine Cloudy (Clear); Bacteria,Urine Occasional /hpf; Bilirubin,Urine Negative (Negative); Glucose,Urine (UA) Negative (Negative); Ketones,Urine Trace (Negative); Leukocyte Esterase,Urine Large (Negative); Mucus,Urine Occasional /hpf; Nitrite,Urine Negative (Negative); PH, Urine 5.5 (5.0-8.0); Particle Count 7014; Protein,Urine Trace (Negative); RBC,Urine 2 /hpf (0-5); Specific Gravity,Urine 1.017 (1.001-1.035); Squamous Epithelial Cell,Urine 11 /hpf (0-4); Transitional Epi Cells,Urine <1 /hpf (0-1); UA Billing (MACRO vs. MICRO) MICRO; Urobilinogen,Urine <2.0 mg/dL (<2.0); WBC,Urine 12 /hpf (0-5)
[2017-05-01] MEDS: LEVOTHYROXINE 50 MCG TAB PO SCH (05:58)
[2017-05-01 06:20] LABS: Anisocytosis Slight; Basophils % (A) 1 %; CH 30.2; CHCM 33.2; Eosinophils # (A) 0.1 k/uL (0-0.7); Eosinophils % (A) 1 %; HCT 39.3 % (34.0-46.0); HDW 3.18; HGB 12.8 gm/dL (11.4-16.0); Luc # (Auto) 0.12; Luc % (Auto) 3; Lymphocytes % (A) 27 %; MCH 29.8 pg (25.0-35.0); MCHC 32.6 g/dL (31.0-37.0); MCV 91.4 fL (80.0-100.0); Mean Platelet Volume 7.5; Monocytes # (A) 0.5 k/uL (0-1.0); Monocytes % (A) 13 %; Neutrophils % (A) 55 %; RDW 16.1 % (11.5-15.5); WBC 3.7 k/uL (3.8-10.6); WBC (Perox) 3.55
[2017-05-01 06:48] LABS: Anion Gap 9 mmol/L; Blood Urea Nitrogen 18 mg/dL (7-17); Calcium 8.6 mg/dL (8.4-10.2); Carbon Dioxide 24 mmol/L (22-30); Chloride 108 mmol/L (98-107); Glucose 73 mg/dL (74-99); Non-African American GFR(MDRD) >60 (>60 ml/min/1.73 sqM); Phosphorus 3.3 mg/dL (2.5-4.5); Potassium 3.3 mmol/L (3.5-5.1); Sodium 141 mmol/L (137-145)
[2017-05-01] MEDS ORDERED: POTASSIUM CHLORIDE ER 20 MEQ TAB.ER PO STA (08:37)
[2017-05-01] MEDS: CLOPIDOGREL 75 MG TAB PO SCH (09:26)
[2017-05-01] MEDS: ENOXAPARIN 40 MG/0.4 ML SYRINGE SQ SCH (09:26)
[2017-05-01] MEDS: ALLOPURINOL 300 MG TAB PO SCH (09:26)
[2017-05-01] MEDS: OSELTAMIVIR 75 MG CAP PO SCH ×2 (09:26→20:54)
[2017-05-01] MEDS: ASPIRIN 81 MG PO SCH (09:27)
[2017-05-01] MEDS: POTASSIUM CHLORIDE ER 10 MEQ TAB.ER.PRT PO SCH ×2 (09:27→20:55)
[2017-05-01] MEDS: ATENOLOL 50 MG TAB PO SCH (11:29)
--- NOTE | 2017-05-01 11:30 | P.PN ---
Subjective Progress Note Date: 05/01/17 Principal diagnosis: Altered mental status Patient is feeling better currently, no more symptoms of confusion or spacing out. No blurred vision, double vision. No focal weakness or numbness. Objective - Vital Signs Vital signs: Vital Signs Temp 98.3 F 05/01/17 09:15 Pulse 57 L 05/01/17 09:15 Resp 20 05/01/17 09:15 BP 114/58 05/01/17 09:15 Pulse Ox 93 L 05/01/17 09:15 Intake & Output 04/30/17 05/01/17 05/01/17 18:59 06:59 18:59 Intake Total 1300 200 Output Total 100 Balance 1200 200 Weight 72.7 kg Intake: Intake, IV Titration 1300 Amount 0.9% NaCl with KCl 20 Meq 500 /l 1,000 ml @ 80 mls/hr IV .[id number] [facility] Rx#: [id number] Sodium Chloride 0.9% 1, 800 000 ml @ 100 mls/hr IV . Q10H [facility] Rx#:[id number] Oral 200 Output: Urine 100 Other: Voiding Method Toilet Toilet # Voids 1 # Bowel Movements 1 - Exam Constitutional: No acute distress, conversant, pleasant Eyes:Anicteric sclerae, moist conjunctiva, no lid-lag, PERRLA, ENMT: Oropharynx clear, no erythema, exudates Neck: Supple, FROM, no masses, or JVD, No carotid bruits, No thyromegaly Lungs: Clear to auscultation, Clear to percussion, Normal respiratory effort, no accessory muscle use Cardiovascular: Heart regular in rate and rhythm, No murmurs, gallops, or rubs, No peripheral edema Abdominal: Soft, Nontender, no guarding, rebound or rigidity, Normoactive bowel sounds, No hepatomegaly, No splenomegaly, No palpable mass Skin: Normal temperature, tone, texture, turgor, no induration, No subcutaneous nodules, No rash, lesions, No ulcers Extremities: No digital cyanosis, No clubbing, Pedal pulses intact and symmetrical, Radial pulses intact and symmetrical, No calf tenderness Psychiatric: Alert and oriented to person, place and time, appropriate affect, intact judgement Neuro: Muscles Strength 5/5 in all 4 extremities, Sensation to light touch grossly present throughout, Cranial nerves II-XII grossly intact, no focal sensory deficits - Labs CBC & Chem 7: 05/01/17 05:35 05/01/17 05:35 Labs: Abnormal Lab Results - Last 24 Hours (Table) 04/30/17 04/30/17 04/30/17 Range/Units 19:43 19:43 19:43 WBC (3.8-10.6) k/uL RDW 17.4 H (11.5-15.5) % Lymphocytes # 0.6 L (1.0-4.8) k/uL Potassium 3.1 L (3.5-5.1) mmol/L Chloride (98-107) mmol/L BUN 20 H (7-17) mg/dL Glucose 107 H (74-99) mg/dL AST 48 H (14-36) U/L Urine Appearance (Clear) Urine Protein (Negative) Urine Ketones (Negative) Ur Leukocyte Esterase (Negative) Urine RBC (0-5) /hpf Urine WBC (0-5) /hpf Ur Squamous Epith Cells (0-4) /hpf Urine Bacteria (None) /hpf Hyaline Casts (0-2) /lpf Urine Mucus (None) /hpf Urine Yeast (Budding) (None) /hpf Influenza Type A RNA Detected H (Not Detectd) 04/30/17 05/01/17 05/01/17 Range/Units 20:30 00:23 05:35 WBC 3.7 L (3.8-10.6) k/uL RDW 16.1 H (11.5-15.5) % Lymphocytes # (1.0-4.8) k/uL Potassium (3.5-5.1) mmol/L Chloride (98-107) mmol/L BUN (7-17) mg/dL Glucose (74-99) mg/dL AST (14-36) U/L Urine Appearance Cloudy H Cloudy H (Clear) Urine Protein Trace H Trace H (Negative) Urine Ketones Trace H Trace H (Negative) Ur Leukocyte Esterase Large H Large H (Negative) Urine RBC 8 H (0-5) /hpf Urine WBC 21 H 12 H (0-5) /hpf Ur Squamous Epith Cells 9 H 11 H (0-4) /hpf Urine Bacteria Many H Occasional H (None) /hpf Hyaline Casts 13 H (0-2) /lpf Urine Mucus Occasional H Occasional H (None) /hpf Urine Yeast (Budding) Occasional H (None) /hpf Influenza Type A RNA (Not Detectd) 05/01/17 Range/Units 05:35 WBC (3.8-10.6) k/uL RDW (11.5-15.5) % Lymphocytes # (1.0-4.8) k/uL Potassium 3.3 L (3.5-5.1) mmol/L Chloride 108 H (98-107) mmol/L BUN 18 H (7-17) mg/dL Glucose 73 L (74-99) mg/dL AST (14-36) U/L Urine Appearance (Clear) Urine Protein (Negative) Urine Ketones (Negative) Ur Leukocyte Esterase (Negative) Urine RBC (0-5) /hpf Urine WBC (0-5) /hpf Ur Squamous Epith Cells (0-4) /hpf Urine Bacteria (None) /hpf Hyaline Casts (0-2) /lpf Urine Mucus (None) /hpf Urine Yeast (Budding) (None) /hpf Influenza Type A RNA (Not Detectd) Assessment and Plan Plan: (1) Altered mental status -Resolved -Etiology likely secondary to dehydration +/- influenza A. -Continue treatment for the dehydration and influenza A as below. -Unable to rule out stroke , consult neurology for further evaluation and input (2) Dehydration -Secondary to lack of appetite and decreased oral intake for approximately 48 hours -Continue IV fluids at 100 mL an hour -Repeat labs in a.m. (3) Influenza A -Continue Tamiflu A to complete 5 day course -Droplet precautions (4) Hypokalemia Narrative/Plan: Patient has chronic hypokalemia and takes potassium supplement on an outpatient basis Will give potassium chloride 40 mEq by mouth 1 Repeat labs in a.m.
[2017-05-01] MEDS: HYDROCHLOROTHIAZIDE 25 MG TAB PO SCH (13:29)
[2017-05-01] MEDS ORDERED: SODIUM CHLORIDE 0.9% 1,000 ML IV STA (13:35)
[2017-05-01] MEDS: ISOSORBIDE MONONITRATE ER 30 MG TAB.ER.24H PO SCH (15:56)
--- NOTE | 2017-05-01 17:08 | CDI ---
In responding to this query, please exercise your independent professional judgment. The [facility] Coding Staff and Clinical Documentation Specialists appreciate your assistance in clarifying documentation, maintaining compliance with coding guidelines, accurately documenting patients condition and capturing severity of illness. The fact that a question is asked does not imply that any particular answer is desired or expected. Communication forms are a method of clarifying documentation and are not made part of the Legal Health Record. Thank you in advance for your clarification. Last Revision, August 2015 Angelica Jurado [address] [address] Documentation Clarification Form Date: 05/01/2017 4:52:00 PM From: Jocelynenubia Mainan Admit Date: 04/30/2017 9:36:00 PM Patient Name: Arcelia Shafer Visit Number: [id number] Discharge Date: Dr. Kailash Broussard/Dr. Luis M Perez Altered mental status was documented in the History & Physical, likely secondary to dehydration with diagnosis of influenza A. Patient history/risk factors: CVA with Right hand weakness, Hypertension, Coronary artery disease Clinical Indicators: Presents with altered mental status and confusion. The patient was not responding. Vital signs: 127/58 70 18 99.0 91 % RA Labs: WBC 5.3, Na+ 137, K+ 3.1, BUN 20, CR 0.97 Chest x-ray: no ac cardiopulmonary Treatment: Neuro checks per protocol Monitor Electrolytes Potassium replacement: IV, change to PO IV Fluids Tamiflu, influenza precautions In your professional opinion, please clarify the etiology of the altered mental status, if known. Encephalopathy (specify Type: Metabolic, Toxic, Other, and Underlying Medical Illness) Delirium (specify cause): Dementia (if know, specify Type and if with/without Behavioral Disturbance) Other condition (please specify) Unable to determine Please document in your progress notes and discharge summary in order to capture severity of illness and risk of mortality. Include clinical findings that support your diagnosis. FYI: Press F11 to launch patient chart. MTDD
--- NOTE | 2017-05-01 19:31 | P.CNNES ---
History of Present Illness Consult date: 05/01/17 History of Present Illness: the patient is a 76-year-old left-handed white female who states her was making her daughter and he was talking to her and then she started staring off at him. In talking and she couldn't bring out her words but she was fully aware of the situation and she could understand what he was saying. He called EMS and by the time they arrived she was able to speak. Patient reports that she's been sick since last Sunday with cough and cold symptoms. There is been no fever. She is tested possible positive for influenza A and was admitted to the hospital with influenza a and dehydration as well as near syncope. The patient is not clear whether she passed out but thinks that she was fully awake when she could not speak. Does have a history of previous stroke. And she takes Plavix and aspirin. Neurology is requested to see the patient to rule out stroke. Review of Systems Constitutional: Denies chills, Denies fever Eyes: denies blurred vision, denies pain Cardiovascular: Denies chest pain, Denies shortness of breath Respiratory: Denies cough Musculoskeletal: Denies myalgias Neurological: Denies numbness, Denies weakness Psychiatric: Denies anxiety, Denies depression Past Medical History Past Medical History: Coronary Artery Disease (CAD), CVA/TIA, Hyperlipidemia, Hypertension, Osteoarthritis (OA) Additional Past Medical History / Comment(s): HX OF CVA X2 . N/T IN RIGHT HAND History of Any Multi-Drug Resistant Organisms: None Reported Past Surgical History: Heart Catheterization, Heart Catheterization With Stent, Orthopedic Surgery, Tubal Ligation Additional Past Surgical History / Comment(s): JESIKA CATARACT SX, LEFT BREAST BX NEG 01-27-14 STENT TO CX, Left shoulder replacement Past Anesthesia/Blood Transfusion Reactions: Postoperative Nausea & Vomiting ( PONV) Date of Last Stent Placement:: 01-27-14 Past Psychological History: No Psychological Hx Reported Smoking Status: Never smoker Past Alcohol Use History: None Reported Past Drug Use History: None Reported Medications and Allergies Home Medications Medication Instructions Recorded Confirmed Type Atenolol [Tenormin] 50 mg PO QAM 01/22/14 04/30/17 History Hydrochlorothiazide [Hydrodiuril] 25 mg PO DAILY 01/22/14 04/30/17 History Isosorbide Mononitrate [Imdur] 30 mg PO QAM 01/22/14 04/30/17 History Levothyroxine Sodium [Synthroid] 50 mcg PO QAM 01/22/14 04/30/17 History amLODIPine BESYLATE [Norvasc] 5 mg PO HS 01/22/14 04/30/17 History Clopidogrel [Plavix] 75 mg PO DAILY #30 tab 01/28/14 04/30/17 Rx Allopurinol [Zyloprim] 300 mg PO DAILY 06/26/16 04/30/17 History Aspirin EC [Ecotrin Low Dose] 81 mg PO DAILY 06/26/16 04/30/17 History Potassium Chloride [Klor-Con 10] 10 meq PO BID 06/26/16 04/30/17 History Rosuvastatin [Crestor] 20 mg PO TUTH 06/26/16 04/30/17 History Donepezil [Aricept] 5 mg PO HS 03/08/17 04/30/17 History Ondansetron Odt [Zofran Odt] 4 mg PO Q8HR PRN #10 tab 03/08/17 04/30/17 Rx Nitroglycerin Sl Tabs [Nitrostat] 0.4 mg SUBLINGUAL Q5M PRN 04/30/17 04/30/17 History Allergies Allergy/AdvReac Type Severity Reaction Status Date / Time No Known Allergies Allergy Verified 04/30/17 20:28 Physical Examination - Vital Signs Vital Signs: Vital Signs Temp Pulse Pulse Resp BP BP Pulse Ox 05/01/17 15:25 98.2 F 54 L 20 128/65 91 L 05/01/17 13:19 63 110/58 05/01/17 11:25 98.2 F 64 16 126/70 93 L 05/01/17 09:15 98.3 F 57 L 20 114/58 93 L 05/01/17 04:00 98.4 F 57 L 16 121/55 96 05/01/17 00:00 61 16 04/30/17 23:50 98.3 F 61 16 123/57 94 L 04/30/17 23:34 100.4 F H 68 18 126/65 89 L 04/30/17 22:39 99.0 F 65 18 124/58 93 L 04/30/17 21:40 65 18 124/71 94 L 04/30/17 20:48 64 18 111/64 96 04/30/17 20:41 70 18 123/68 98 04/30/17 19:50 70 18 143/60 96 04/30/17 19:30 99.0 F 70 18 127/58 91 L Intake and Output 05/01/17 05/01/17 05/01/17 06:59 14:59 22:59 Intake Total 800 1180 200 Output Total 100 400 200 Balance 700 780 0 Intake: IV 800 Sodium Chloride 0.9% 1, 800 000 ml @ 100 mls/hr IV . Q10H STA Rx#:[id number] Intake, IV Titration 800 Amount Sodium Chloride 0.9% 1, 800 000 ml @ 100 mls/hr IV . Q10H STA Rx#:[id number] Oral 380 200 Output: Urine 100 400 200 Other: Voiding Method Toilet Toilet Toilet # Voids 1 # Bowel Movements 1 2 1 Weight 72.7 kg - Constitutional General appearance: average body habitus - EENT EENT: PERRL, hearing intact, vision intact - Cardiovascular Cardiovascular: regular rate - Integumentary Integumentary: normal - Neurologic mental status: She was awake alert and oriented there was no a aphasia or dysarthria. Cranial nerve examination: PERRL, EOMI, VFF, face symmetric, tongue midline Speech examination: intact Sensorimotor examination: intact Detailed motor examination: grossly full strength in all extremities, full strength in all major muscle groups Motor examination - right side: 5/5: biceps, triceps, wrist flexion, wrist extension, seafood team member, hip flexors, knee extensors, dorsiflexion, toe extension (EHL) , plantarflexion Motor examination - left side: 5/5: biceps, triceps, wrist flexion, wrist extension, seafood team member, hip flexors, knee extensors, dorsiflexion, toe extension (EHL) , plantarflexion Results - Laboratory Findings CBC and BMP: 05/01/17 05:35 05/01/17 05:35 Abnormal Lab Findings: Abnormal Labs 04/30/17 04/30/17 04/30/17 19:43 19:43 19:43 WBC RDW 17.4 H Lymphocytes # 0.6 L Potassium 3.1 L Chloride BUN 20 H Glucose 107 H AST 48 H Urine Appearance Urine Protein Urine Ketones Ur Leukocyte Esterase Urine RBC Urine WBC Ur Squamous Epith Cells Urine Bacteria Hyaline Casts Urine Mucus Urine Yeast (Budding) Influenza Type A RNA Detected H 04/30/17 05/01/17 05/01/17 20:30 00:23 05:35 WBC 3.7 L RDW 16.1 H Lymphocytes # Potassium Chloride BUN Glucose AST Urine Appearance Cloudy H Cloudy H Urine Protein Trace H Trace H Urine Ketones Trace H Trace H Ur Leukocyte Esterase Large H Large H Urine RBC 8 H Urine WBC 21 H 12 H Ur Squamous Epith Cells 9 H 11 H Urine Bacteria Many H Occasional H Hyaline Casts 13 H Urine Mucus Occasional H Occasional H Urine Yeast (Budding) Occasional H Influenza Type A RNA 05/01/17 05:35 WBC RDW Lymphocytes # Potassium 3.3 L Chloride 108 H BUN 18 H Glucose 73 L AST Urine Appearance Urine Protein Urine Ketones Ur Leukocyte Esterase Urine RBC Urine WBC Ur Squamous Epith Cells Urine Bacteria Hyaline Casts Urine Mucus Urine Yeast (Budding) Influenza Type A RNA Assessment and Plan (1) TIA (transient ischemic attack) Current Visit: Yes Status: Acute SNOMED Code(s): 435713223 (2) Dehydration Current Visit: Yes Status: Acute SNOMED Code(s): 19924650 (3) Influenza A Current Visit: Yes Status: Acute SNOMED Code(s): 246103966 (4) Near syncope Current Visit: Yes Status: Acute Code(s): R55 - SYNCOPE AND COLLAPSE SNOMED Code(s): 440077371 Plan: The patient is a 76-year-old woman who presents to the hospital with sudden speech arrest. She was unable to speak and is unclear whether she had a near syncopal event or a TIA. The patient will have an EEG to rule out partial seizure. She will also have a CAT scan of the brain and carotid ultrasound. She is currently on aspirin and Plavix
[2017-05-01] MEDS ORDERED: ATORVASTATIN 40 MG TAB PO SCH (21:00)
[2017-05-01] MEDS ORDERED: DONEPEZIL 5 MG TAB PO SCH (21:00)
[2017-05-01] MEDS ORDERED: amLODIPine 5 MG TAB PO SCH (21:00)
--- NOTE | 2017-05-01 21:00 | CT ---
EXAMINATION TYPE: CT brain wo con DATE OF EXAM: 05/01/2017 COMPARISON: 11/08/2009 HISTORY: weakness CT DLP: 1064.[address] of the brain was performed. The ventricles, basal cisterns and sulci overlying the cerebral convexities demonstrate mild enlargem ent. There is no evidence for intracranial hemorrhage or sulcal effacement. There is decreased attenuation about the periventricular white matter and deep white matter of both c erebral hemispheres, compatible with chronic small vessel ischemia. Differential diagnosis does inclu de demyelination. No mass effects are seen.No midline shift. Osseous calvarium is intact. Basal thickening left maxillary sinus. If symptoms persist consider MRI. IMPRESSION: 1. Age related atrophic and chronic small vessel ischemic change without acute intracranial process s een at this time.
[2017-05-02] MEDS: LEVOTHYROXINE 50 MCG TAB PO SCH (06:06)
[2017-05-02 06:26] LABS: Anisocytosis Slight; Basophils % (A) 1 %; CH 29.4; CHCM 33.1; Eosinophils # (A) 0.1 k/uL (0-0.7); Eosinophils % (A) 3 %; HCT 37.3 % (34.0-46.0); HDW 3.13; HGB 12.3 gm/dL (11.4-16.0); Luc % (Auto) 3; Lymphocytes # (A) 1.9 k/uL (1.0-4.8); Lymphocytes % (A) 58 %; MCH 29.5 pg (25.0-35.0); MCHC 32.9 g/dL (31.0-37.0); MCV 89.6 fL (80.0-100.0); Mean Platelet Volume 8.2; Monocytes # (A) 0.3 k/uL (0-1.0); Monocytes % (A) 8 %; Neutrophils # (A) 0.9 k/uL (1.3-7.7); Neutrophils % (A) 28 %; RBC 4.16 m/uL (3.80-5.40); RDW 17.4 % (11.5-15.5); WBC 3.2 k/uL (3.8-10.6); WBC (Perox) 3.29
[2017-05-02 06:37] LABS: Anion Gap 8 mmol/L; Blood Urea Nitrogen 14 mg/dL (7-17); Calcium 8.4 mg/dL (8.4-10.2); Carbon Dioxide 21 mmol/L (22-30); Chloride 112 mmol/L (98-107); Glucose 74 mg/dL (74-99); Magnesium 1.8 mg/dL (1.6-2.3); Non-African American GFR(MDRD) >60 (>60 ml/min/1.73 sqM); Phosphorus 2.9 mg/dL (2.5-4.5); Potassium 3.3 mmol/L (3.5-5.1); Sodium 141 mmol/L (137-145)
[2017-05-02 06:41] LABS: Manual Review Performed
[2017-05-02] MEDS ORDERED: POTASSIUM CHLORIDE ER 20 MEQ TAB.ER PO SCH (07:00)
[2017-05-02] MEDS: ATENOLOL 50 MG TAB PO SCH (07:59)
[2017-05-02] MEDS: OSELTAMIVIR 75 MG CAP PO SCH (07:59)
[2017-05-02] MEDS: POTASSIUM CHLORIDE ER 10 MEQ TAB.ER.PRT PO SCH (07:59)
[2017-05-02] MEDS: ASPIRIN 81 MG PO SCH (08:00)
[2017-05-02] MEDS: ALLOPURINOL 300 MG TAB PO SCH (08:00)
[2017-05-02] MEDS: ENOXAPARIN 40 MG/0.4 ML SYRINGE SQ SCH (08:00)
[2017-05-02] MEDS: HYDROCHLOROTHIAZIDE 25 MG TAB PO SCH (08:00)
[2017-05-02] MEDS: ISOSORBIDE MONONITRATE ER 30 MG TAB.ER.24H PO SCH (08:00)
[2017-05-02] MEDS: CLOPIDOGREL 75 MG TAB PO SCH (08:00)
[2017-05-02 08:08] VITALS: RESP 18
--- NOTE | 2017-05-02 10:46 | US ---
EXAMINATION TYPE: US carotid duplex BILAT DATE OF EXAM: 05/02/2017 COMPARISON: NONE CLINICAL HISTORY: near syncope. inpt with influenza, EXAM MEASUREMENTS: RIGHT: Peak Systolic Velocity (PSV) cm/sec ----- Right CCA: 48.9 ----- Right ICA: 51.7 ----- Right ECA: 62.5 ICA/CCA ratio: 1.1 RIGHT: End Diastole cm/sec ----- Right CCA: 10.6 ----- Right ICA: 19.9 ----- Right ECA: 10.1 LEFT: Peak Systolic Velocity (PSV) cm/sec ----- Left CCA: 41.2 ----- Left ICA: 65.1 ----- Left ECA: 58.2 ICA/CCA ratio: 1.6 LEFT: End Diastole cm/sec ----- Left CCA: 13.3 ----- Left ICA: 19.4 ----- Left ECA: 10.0 VERTEBRALS (direction of flow): Right Vertebral: Antegrade Left Vertebral: Antegrade Rhythm: Normal Heterogenous plaque seen at bilateral bulbs with no significant stenosis seen. Grayscale, color Doppler, spectral Doppler imaging performed carotid arteries IMPRESSION: No hemodynamic significant stenosis of the proximal internal carotid arteries bilaterall y by Doppler criteria, an indirect measurement of carotid stenosis
[2017-05-02 11:46] VITALS: BP 122/62; PULSE 59; TEMP 97.9
--- NOTE | 2017-05-02 13:05 | P.DS ---
Providers Date of admission: 04/30/17 21:36 Expected date of discharge: 05/02/17 Attending physician: Kailash Broussard, DO Consults: 05/01/17 11:20 Consult Physician Routine Consulting Provider: Jose Graham Consult Reason/Comments: r/o stroke Do you want consulting provider notified?: Yes Primary care physician: [facility] Course: 76-year-old female with history of coronary artery disease, CVA, hypertension and hyperlipidemia who presents to the hospital with altered mental status and confusion. Patient's reported speaking with the patient however she was not responding. The patient herself states that she remembers her speaking to her, however she was unable to answer his question. She was just starring not doing anything. There was no noted facial droop, slurred speech, convulsions or focal weakness during this episode. The patient reports approximately 48 hours of "not feeling well". She stated that she has had malaise, runny nose and nonproductive cough. Denied any chest pain, shortness of breath, fevers, chills, nausea, vomiting, diarrhea or constipation. She stated that she was in bed for most of Sunday. During the episode this evening, the patient did not have any loss of bowel or bladder control. She denied having any headache, dizziness or lightheadedness. She does have a history of CVA with residual right hand weakness, however this is no worse than normal. There is no reported slurred speech or facial droop. The patient states that she has not been eating or drinking for the past 48 hours due to decreased appetite. In the emergency department the patient was found to be influenza A positive. The patient states she did have a flu shot approximately one month prior. Patient was admitted to the hospital for monitoring, she was on telemetry. She had a head CT scan that did not show any acute abnormalities. She also had a carotid Doppler that did not show any significant stenosis in the carotid arteries. She was seen by neurology and according to the neurologist recommendations patient had an EEG, results are currently pending. Telemetry did not show any arrhythmias. Throughout the hospitalization she did not have any indications for infection including fevers or leukocytosis. He has chronic hypokalemia her potassium was replaced. Her symptoms were explained by significant dehydration and influenza A. He was started on treatment with IV fluids and Tamiflu. She significantly felt better with that treatment and today she is back to her baseline well-being. Patient was instructed not to drive a motor vehicle until seen by the neurologist in the office. Patient was also instructed to follow with her primary care physician as soon as possible after discharge. Patient Condition at Discharge: Stable Plan - Discharge Summary Discharge Rx Participant: No New Discharge Prescriptions: New Oseltamivir [Tamiflu] 75 mg PO Q12HR #6 cap Continue amLODIPine BESYLATE [Norvasc] 5 mg PO HS Levothyroxine Sodium [Synthroid] 50 mcg PO QAM Isosorbide Mononitrate [Imdur] 30 mg PO QAM Hydrochlorothiazide [Hydrodiuril] 25 mg PO DAILY Atenolol [Tenormin] 50 mg PO QAM Clopidogrel [Plavix] 75 mg PO DAILY #30 tab Rosuvastatin [Crestor] 20 mg PO TUTH Allopurinol [Zyloprim] 300 mg PO DAILY Potassium Chloride [Klor-Con 10] 10 meq PO BID Aspirin EC [Ecotrin Low Dose] 81 mg PO DAILY Donepezil [Aricept] 5 mg PO HS Ondansetron Odt [Zofran ODT] 4 mg PO Q8HR PRN #10 tab PRN Reason: Nausea vomiting Nitroglycerin Sl Tabs [Nitrostat] 0.4 mg SUBLINGUAL Q5M PRN PRN Reason: Chest Pain Discharge Medication List Atenolol [Tenormin] 50 mg PO QAM 01/22/14 [History] Hydrochlorothiazide [Hydrodiuril] 25 mg PO DAILY 01/22/14 [History] Isosorbide Mononitrate [Imdur] 30 mg PO QAM 01/22/14 [History] Levothyroxine Sodium [Synthroid] 50 mcg PO QAM 01/22/14 [History] amLODIPine BESYLATE [Norvasc] 5 mg PO HS 01/22/14 [History] Clopidogrel [Plavix] 75 mg PO DAILY #30 tab 01/28/14 [Rx] Allopurinol [Zyloprim] 300 mg PO DAILY 06/26/16 [History] Aspirin EC [Ecotrin Low Dose] 81 mg PO DAILY 06/26/16 [History] Potassium Chloride [Klor-Con 10] 10 meq PO BID 06/26/16 [History] Rosuvastatin [Crestor] 20 mg PO TUTH 06/26/16 [History] Donepezil [Aricept] 5 mg PO HS 03/08/17 [History] Ondansetron Odt [Zofran ODT] 4 mg PO Q8HR PRN #10 tab 03/08/17 [Rx] Nitroglycerin Sl Tabs [Nitrostat] 0.4 mg SUBLINGUAL Q5M PRN 04/30/17 [History] Oseltamivir [Tamiflu] 75 mg PO Q12HR #6 cap 05/02/17 [Rx] Follow up Appointment(s)/Referral(s): Manjeet Umanzor MD [Primary Care Provider] - 1-2 days Activity/Diet/Wound Care/Special Instructions: As tolerated, no driving until follow up by the neurologist Discharge Disposition: HOME SELF-CARE
--- NOTE | 2017-05-16 14:11 | EEG ---
ELECTROENCEPHALOGRAM REPORT CONSULTING INTERPRETING PHYSICIAN: Dr. Jose Graham MD. DATE OF EE05/02/2017. REFERRING PHYSICIAN: Dr. Broussard ELECTROENCEPHALOGRAPHIC EXAMINATION REPORT: INDICATION FOR EXAMINATION: This patient is a 76-year-old female being evaluated for episode of staring spells with unresponsive state. EEG to rule out seizure disorder. AGE: 76. EEG FINDINGS: A routine 21 channel awake digital EEG recording was accomplished utilizing the 10-20 international system with bipolar and referential montages. The background activity in the most alert resting state consists of a low to medium amplitude, fairly well developed and well sustained 7-8 Hz activity over the posterior head regions. Muscle and movement artifact was observed on a few occasions during the tracing. Hyperventilation was not performed. Photic stimulation at flash frequencies of 2-30 Hz produced a minimal occipital driving response. No epileptiform discharges were seen. IMPRESSION: This EEG is within normal limits for the patient's age. The EEG failed to reveal any focal, lateralized, or epileptiform abnormalities. Clinical correlation is recommended. MMODL / IJN: [id number] /
== END 2017-05-02 16:21 | disposition home or self-care (01) | DRG 865 ==
LOC: EC 19:29 → 6SEL 21:36
PROVIDERS: ADMIT Phlebology; ATTEND Phlebology
DX: J10.81 Influenza due to other identified influenza virus with encephalopathy (principal); G93.41 Metabolic encephalopathy; G45.9 Transient cerebral ischemic attack, unspecified; E86.0 Dehydration; E87.6 Hypokalemia; E78.5 Hyperlipidemia, unspecified; I10 Essential (primary) hypertension; I25.10 Atherosclerotic heart disease of native coronary artery without angina pectoris; J00 Acute nasopharyngitis [common cold]; Z79.02 Long term (current) use of antithrombotics/antiplatelets; Z79.899 Other long term (current) drug therapy; Z86.73 Personal history of transient ischemic attack (TIA), and cerebral infarction without residual deficits; Z96.612 Presence of left artificial shoulder joint; R47.9 Unspecified speech disturbances; Z79.82 Long term (current) use of aspirin; Z95.5 Presence of coronary angioplasty implant and graft; Z98.42 Cataract extraction status, left eye; Z98.41 Cataract extraction status, right eye
CPT/HCPCS: 36415; 70450; 71020; 80048; 80053; 81001; 82550; 82553; 83735; 84100; 84132; 84484; 85025; 85610; 85730; 87040; 87324; 87502; 93005; 93880; 95819; 96360; 96361; 99285

== ENCOUNTER → 2018-01-10 | Outpatient (CLI) | payer MEDICARE, OTHER ==
--- NOTE | 2018-01-11 10:56 | MM ---
Reason for exam: screening (asymptomatic). Last mammogram was performed 2 years and 8 months ago. History: Patient is postmenopausal. Core biopsy of the left breast. Excisional biopsy of the left breast. Took hormonal contraceptives for 11 years. Physical Findings: A clinical breast exam by your physician is recommended on an annual basis and results should be correlated with mammographic findings. MG 3D Screening Mammo W/Cad Bilateral CC and MLO view(s) were taken. Prior study comparison: April 29, 2015, bilateral MG 3d diag mammo w/cad JESIKA. April 23, 2014, bilateral MG diagnostic mammo w CAD JESIKA. The breast tissue is heterogeneously dense. This may lower the sensitivity of mammography. Benign appearing bilateral calcifications. Additionally, there is a 4mm group of increased calcifications in the upper outer quadrant of the right breast at a middle depth. No suspicious abnormality jin the left breast. ASSESSMENT: Incomplete: need additional imaging evaluation, BI-RAD 0 RECOMMENDATION: Special view mammogram of the right breast. [facility] will attempt to contact patient to return for supplemental views.
== END | disposition home or self-care (01) ==
LOC: RADMAMWWP 10:59
PROVIDERS: ATTEND Internal Medicine
DX: Z12.31 Encounter for screening mammogram for malignant neoplasm of breast (principal)
CPT/HCPCS: 77063; 77067

== ENCOUNTER → 2018-01-14 | Outpatient (CLI) | payer MEDICARE, OTHER ==
--- NOTE | 2018-01-14 11:56 | XR ---
EXAMINATION TYPE: XR ribs RT DATE OF EXAM: 01/14/2018 COMPARISON: NONE HISTORY: Pain TECHNIQUE: 3 views submitted FINDINGS: Arthropathy shoulders and diffuse osteopenia noted. Rib cage appears to be intact. IMPRESSION: No acute displaced rib fracture.
--- NOTE | 2018-01-14 11:57 | XR ---
EXAMINATION TYPE: XR chest 2V DATE OF EXAM: 01/14/2018 COMPARISON: 04/30/2017 TECHNIQUE: PA and lateral views submitted. HISTORY: Cough FINDINGS: The lungs are clear and there is no pneumothorax, pleural effusion, or focal pneumonia. There is ec randolph of the aorta. Atherosclerotic changes seen. Arthropathy of the shoulder on the right and postsu rgical change in the left. Hypertrophic and degenerative change of the spine. IMPRESSION: 1. No acute process.
--- NOTE | 2018-01-14 12:01 | XR ---
EXAMINATION TYPE: XR Hip RT and AP Pelvis DATE OF EXAM: 01/14/2018 COMPARISON: NONE HISTORY: Pain TECHNIQUE: A single AP view of the pelvis is obtained. Two views of the right hip are obtained. FINDINGS: There is no acute fracture/dislocation evident in the pelvis. Sclerosis involving the SI j oint suggest sacroiliitis. Degenerative change of the lower lumbar spine. Calcifications in the pelvi s are noted. Two views of right hip show no acute fracture or dislocation. No focal lytic or sclerot ic lesion seen in the proximal right femur. The overlying soft tissue is unremarkable. Mild concentric narrowing the joint space and hypertrophic change of the acetabulum. Hypertrophic greyson nges along the greater trochanter. Question a slight deformity involving the right third sacral reyes dung. IMPRESSION: 1. There is a subtle deformity involving the left third sacral foramina which may be positional. Ther e is pain posteriorly consider follow-up CT scan. No evidence of acute displaced rib fracture.
== END | disposition home or self-care (01) ==
LOC: RADXRMAIN 11:01
PROVIDERS: ATTEND Internal Medicine
DX: M43.8X8 Other specified deforming dorsopathies, sacral and sacrococcygeal region (principal); R05 Cough; R53.83 Other fatigue; M54.41 Lumbago with sciatica, right side; M25.551 Pain in right hip
CPT/HCPCS: 71046; 73502

== ENCOUNTER → 2018-01-24 | Outpatient (CLI) | payer MEDICARE, OTHER ==
--- NOTE | 2018-01-25 08:08 | MM ---
Reason for exam: additional evaluation requested from abnormal screening. Last mammogram was performed less than 1 month ago. History: Patient is postmenopausal. Core biopsy of the left breast. Excisional biopsy of the left breast. Took hormonal contraceptives for 11 years. Physical Findings: Nurse did not find any significant physical abnormalities on exam. MG 3D Work Up W/Cad RT CC with magnification, LM with magnification, and LM view(s) were taken of the right breast. Prior study comparison: January 10, 2018, bilateral MG 3d screening mammo w/cad. April 29, 2015, bilateral MG 3d diag mammo w/cad JESIKA. There are scattered fibroglandular densities. Finding: There are intermediate concern, suspicious coarse heterogeneous, grouped/clustered calcifications in the 9 o'clock upper outer quadrant, middle position of the right breast 8cm from the nipple. New finding since January 10, 2018 and April 29, 2015. These results were verbally communicated with the patient and result sheet given to the patient on 01/24/18. ASSESSMENT: Suspicious, BI-RAD 4 RECOMMENDATION: Stereotactic core biopsy of the right breast. Called Dr. Umanzor with mammographic findings and has scheduled an appointment for the patient for 02/08/18 at 11:[address] Peterson. PRELIMINARY REPORT CALLED AND FAXED TO DR. PETERSON ON 01/25/18.
== END | disposition home or self-care (01) ==
LOC: RADMAMWWP 14:04
PROVIDERS: ATTEND Internal Medicine
DX: R92.8 Other abnormal and inconclusive findings on diagnostic imaging of breast (principal)
CPT/HCPCS: 77065; G0279; 77061

== ENCOUNTER → 2018-02-15 | Day surgery (SDC) | payer MEDICARE, OTHER ==
[2018-02-15 07:23] VITALS: RESP 16; BMI 31.4
--- NOTE | 2018-02-15 09:08 | PCN ---
PROCEDURE NOTE PREPROCEDURE: Suspicious BI-RADS 4 calcifications, right breast. POSTPROCEDURE DIAGNOSIS: Suspicious BI-RADS 4 calcifications, right breast. The patient is a 77-year-old white female who underwent a bilateral mammogram, which resulted in additional views of the right breast on 01/24/2018. The patient did not have any lesions of concern in the left breast. However, in the right breast, there were intermediate suspicious coarse heterogeneous group/clustered calcifications in the 9 o'clock upper outer quadrant middle position. These were 8 cm from the nipple. This was a new finding since December of 2017, and it was considered suspicious BI-RADS 4 and stereotactic core biopsy of the right breast was recommended. Prior to the procedure, the patient was seen in consultation. Multi-positional exam of each breast did not reveal any dominant mass or nodules of concern in either breast. Risks and benefits of the procedure were discussed with the patient and the patient wished to proceed with stereotactic core biopsy. The patient was taken to the stereotactic core unit and the area of concern in the right breast was localized. The approach was lateral to medial for the stereotactic biopsy. The breast was prepped using Betadine and 1% lidocaine was utilized to anesthetize the skin in the area,. 20 mL were used. This was 1% lidocaine with bicarb. A 9-gauge vacuum assisted core biopsy needle was directed to the correct coordinates and multiple core biopsies were obtained. This was done after the area had been stereotactically located and targeted. Radiograph of the specimen revealed that the area of concern had been adequately sampled with microcalcifications in the specimen. A [employer] top-cdl b driver was placed. The patient tolerated the procedure in stable condition. The specimen was sent for pathology. The patient is being given a postoperative appointment with Dr. Peterson next week. This was done on a Lor[place] table. MMODL / IJN: [id number] /
[2018-02-15 09:45] VITALS: BP 112/71; PULSE 58; TEMP 97.5
--- NOTE | 2018-02-15 10:53 | MM ---
Stereotactic core biopsy right breast. HISTORY: Microcalcifications. The calcifications in question within the right breast were targeted by the undersigned. The examination was performed by the surgeon. Specimen radiograph demonstrates numerous calcifications within the specimen submitted. Post procedural mammogram demonstrates appropriate deployment of radiopaque clip marker. The patient tolerated the procedure well and left the department in stable condition. Pathology results are pending. IMPRESSION: Successful stereotactic core biopsy right breast with pathology results pending. Pathology Results: Benign BREAST, RIGHT, STEREOTACTIC CORE BIOPSY: Fibroadenomatoid hyperplasia with calcifications. Background fibrocystic changes including fibrosis, cysts and sclerosing adenosis. Recommendation Follow up mammogram of the right breast in 6 months. GAVIND
== END | disposition home or self-care (01) ==
LOC: RADMAMWWP 07:05
PROVIDERS: ATTEND Surgery
DX: N60.21 Fibroadenosis of right breast (principal); N60.31 Fibrosclerosis of right breast; N60.01 Solitary cyst of right breast
CPT/HCPCS: 88305; 19081; A4648; J2001

== ENCOUNTER → 2018-02-21 | Outpatient (CLI) | payer MEDICARE, OTHER ==
[2018-02-21 15:49] VITALS: BP 143/67; PULSE 59; BMI 31.8
--- NOTE | 2018-02-21 16:30 | P.PN ---
Progress Note - Text Progress Note Date: 02/21/18 The patient is a 77-year-old white female approximately one week status post stereotactic core biopsy of the right breast. She comes in today for pathology results. The pathology is benign. It is fibroadenomatoid hyperplasia with calcifications. There is background fibrocystic changes including fibrosis, cysts and sclerosing adenosis. I've had a discussion with the patient, her , and her granddaughter regarding the results. She will have a repeat right breast mammogram in 6 months time with a physician exam at that time. Physical exam: Lungs: Clear Heart: Regular rate and rhythm Right breast mild ecchymosis at the site of biopsy, with a small intraparenchymal hematoma No evidence of infection Impression/plan: 1. Benign stereotactic core biopsy of the right breast Plan: 1. Repeat right breast mammogram and physician exam in 6 months time CC: Dr. Umanzor
== END | disposition home or self-care (01) ==
LOC: WWCWWP 15:27
PROVIDERS: ATTEND Surgery
DX: Z53.9 Procedure and treatment not carried out, unspecified reason (principal)

== ENCOUNTER → 2018-08-08 | Outpatient (CLI) | payer MEDICARE, OTHER ==
--- NOTE | 2018-08-08 11:40 | MM ---
Reason for exam: follow-up at short interval from prior study. Last mammogram was performed 6 months ago. History: Patient is postmenopausal. Benign MG stereo VAD BX RT of the right breast, February 15, 2018. Core biopsy of the left breast. Excisional biopsy of the left breast. Took hormonal contraceptives for 11 years. Physical Findings: Nurse did not find any significant physical abnormalities on exam. MG 3D Diag Mammo W/Cad RT CC and MLO view(s) were taken of the right breast. Prior study comparison: January 24, 2018, right breast MG 3d work up w/cad RT. January 10, 2018, bilateral MG 3d screening mammo w/cad. The breast tissue is heterogeneously dense. This may lower the sensitivity of mammography. Previous mammotome biopsy in the right breast. No significant new findings when compared with previous films. These results were verbally communicated with the patient and result sheet given to the patient on 08/08/18. ASSESSMENT: Benign, BI-RAD 2 RECOMMENDATION: Return to routine screening mammogram schedule for both breasts. Back on schedule.
== END | disposition home or self-care (01) ==
LOC: RADMAMWWP 10:59
PROVIDERS: ATTEND Surgery
DX: R92.8 Other abnormal and inconclusive findings on diagnostic imaging of breast (principal)
CPT/HCPCS: 77065; G0279; 77061

== ENCOUNTER → 2018-08-15 | Outpatient (CLI) | payer MEDICARE, OTHER ==
[2018-08-15 13:53] VITALS: BP 165/75; PULSE 51; RESP 18; TEMP 97.8; BMI 31.8
--- NOTE | 2018-08-15 14:20 | P.PN ---
Subjective Progress Note Date: 08/15/18 Principal diagnosis: Patient status post right breast stereotactic core biopsy January 2018 Arcelia is a 77-year-old white female status post right breast stero-tactic core biopsy January 2018. Pathology at that time revealed fibroadenomatoid hyperplasia with calcifications. The patient has no complaints since the biopsy. No lumps in her breasts. No nipple discharge or skin changes. She had a repeat right breast mammogram performed on . This was felt to be benign BIRADS 2. Objective - Vital Signs Vital signs: Vital Signs Temp 97.8 F 08/15/18 13:43 Pulse 51 L 08/15/18 13:43 Resp 18 08/15/18 13:43 BP 165/75 08/15/18 13:43 Pulse Ox 95 08/15/18 13:43 Intake & Output 08/14/18 08/15/18 08/15/18 18:59 06:59 18:59 Weight 73.936 kg - Constitutional General appearance: Present: cooperative - EENT Eyes: Present: EOMI ENT: Present: hearing grossly normal - Neck Neck: Present: normal ROM - Respiratory Respiratory: bilateral: CTA - Cardiovascular Rhythm: regular Heart sounds: normal: S1, S2 - Integumentary Integumentary: Present: normal turgor - Psychiatric Psychiatric: Present: A&O x's 3, appropriate affect, intact judgment & insight - Additional findings Additional findings: Breast examination: Right breast: Multi-positional exam no dominant masses or nodules of concern Right axilla: No adenopathy of concern Left breast: Multi-positional exam no dominant masses or nodules of concern Left axilla: No adenopathy of concern Assessment and Plan Assessment: Impression: 1. HTN 2. high cholesterol 3. cardiac stent 4. skin lesion removed left side of nose (basal skin cancer) 5. Right breast mammogram BIRADS 2 Plan: 1. Bilateral mammogram in 6 months 2. Physician exam at that time 3. Medical management of medical conditions CC: Dr. Umanzor
== END ==
LOC: WWCWWP 13:12
PROVIDERS: ATTEND Surgery
DX: Z53.9 Procedure and treatment not carried out, unspecified reason (principal)

== ENCOUNTER → 2019-01-13 | Outpatient (CLI) | payer MEDICARE, OTHER ==
--- NOTE | 2019-01-15 09:18 | MM ---
Reason for exam: screening (asymptomatic). Last mammogram was performed 5 months ago. History: Patient is postmenopausal. Benign MG stereo VAD BX RT of the right breast, February 15, 2018. Core biopsy of the left breast. Excisional biopsy of the left breast. Took hormonal contraceptives for 11 years. Physical Findings: A clinical breast exam by your physician is recommended on an annual basis and results should be correlated with mammographic findings. MG 3D Screening Mammo W/Cad Bilateral CC and MLO view(s) were taken. Prior study comparison: August 08, 2018, right breast MG 3d diag mammo w/cad RT. January 24, 2018, right breast MG 3d work up w/cad RT. The breast tissue is heterogeneously dense. This may lower the sensitivity of mammography. Benign appearing bilateral calcifications. No suspicious abnormality. Right biopsy marker noted. No significant changes when compared with prior studies. ASSESSMENT: Benign, BI-RAD 2 RECOMMENDATION: Routine screening mammogram of both breasts in 1 year.
== END | disposition home or self-care (01) ==
LOC: RADMAMWWP 10:50
PROVIDERS: ATTEND Surgery
DX: Z12.31 Encounter for screening mammogram for malignant neoplasm of breast (principal)
CPT/HCPCS: 77063; 77067

== ENCOUNTER → 2019-06-23 | Outpatient (CLI) | payer MEDICARE, OTHER ==
--- NOTE | 2019-06-23 12:27 | US ---
EXAMINATION TYPE: US venous doppler duplex LE LT DATE OF EXAM: 06/23/2019 12:11 PM COMPARISON: US 11/02/2015 CLINICAL HISTORY: M25.562 pain in limb. Pain in left knee SIDE PERFORMED: Left TECHNIQUE: The lower extremity deep venous system is examined utilizing real time linear array sonog andres with graded compression, doppler sonography and color-flow sonography. VESSELS IMAGED: External Iliac Vein (EIV) Common Femoral Vein Deep Femoral Vein Greater Saphenous Vein * Femoral Vein Popliteal Vein Small Saphenous Vein * Proximal Calf Veins (* superficial vessels) Left Leg: Negative for DVT Two areas visualized in left popliteal fossa. First is a complex area measuring 3.1 x 0.6 x 2.2 cm. T he second is complex and more lateral measuring 2.3 x 0.4 x 1.8 cm IMPRESSION: 1. No sonographic evidence of deep venous arthrosis in the left lower chimney. 2. There are 2 complex possible popliteal cysts measuring up to 3.1 cm, continuity with each other ca nnot be demonstrated.
== END | disposition home or self-care (01) ==
LOC: RADUSWWP 11:44
PROVIDERS: ATTEND Orthopaedic Surgery
DX: M79.662 Pain in left lower leg (principal); R60.9 Edema, unspecified; I80.9 Phlebitis and thrombophlebitis of unspecified site